=== PATIENT | female | born 1955 | race Caucasian/White ===

== ENCOUNTER 2019-06-17 07:12 | Day surgery (SDC) | payer MEDICARE ==
[~2019-06-17] VITALS: Ht 160 cm; Wt 75.5 kg
[~2019-06-17 07:12] MED LIST: ALBU90OI61 INH; Accuneb0.63 MG/3 INH; Aldactone100 MG PO; Ativan0.5 MG PO; B Complete1 EACH; B Complex #11 EACH PO; BASAGLAR KWIKPEN; CITA20 PO; CORGARD40 MG PO; FERR325 PO; FERSU300 PO; FLUC150A PO; FURO40 PO; Flonase 0.05% N16 GM; Flovent 110 MCG12 GM INH; GABA300 PO; GABA300T24 PO; Glucophage1000 MG PO; HYDACE5 PO; HYDMOR2 PO; HYOS.125 PO; HYOS.125 SL; IRBHYD150 PO; IRON150C; KRILL OIL500 MG; LOSA25; LOSHYD; METF500 PO; MULVITMIND; Maxalt10 MG; Maxalt5 MG; Mucinex600 MG PO; NADO40 PO; OMEP20ER PO; OMEPRAZOLE20 MG PO; ONDA8; POTASSIUM GLU2.5 MEQ; POTASSIUM GLUC500 MG PO; POTCIT5; Prednisone20 MG PO; QVAR7.3 G1; RIFA550T2 PO; RIZATRIPTAN5 MG PO; SITA25T2 PO; SPACE CHAMBER1 EACH PO; SPIR25; SULTRIDS PO; Tessalon200 MG PO; Valium5 MG PO; Ventolin/Prove6.7 GM INH; Vitamin D2000 UNIT PO; Zithromax250 MG PO; Zofran8 MG PO
--- NOTE | 2019-06-17 09:47 | NUR ---
06/17/19 0947 Leigha Polanco DELAYED ENTRY [id number] PT DROWSY IN SDU. PT C/O 7/10 PAIN IN STOMACH AND NECK (INTERNAL TO DEEP IN HER CHEST, PT STATES). IV FENTANYL GIVEN PER ORDERS. PT WAS ABLE TO SIT UP AND BELCH. PT STATES THIS HELPED RELIEVE THE PRESSURE. PT STATED PAIN DECREASED TO A 5/10 PRIOR TO DC. PT AND HEADED STRAIGHT TO COSTCOTO FILL PRESCRIPTION. DC INSTRUCTIONS PROVIDED WITH AT BEDSIDE.
[2019-07-03] MEDS ORDERED: ONDA4ODT MM (17:04)
[2019-07-03] MEDS ORDERED: MULTI COMPLETE1 EACH PO (17:04)
== END 2019-06-17 09:39 | disposition home or self-care (01) ==
LOC: ORSCSDS 07:12
PROVIDERS: Internal Medicine Gastroenterology
PROC: 06L38CZ Occlusion of Esophageal Vein with Extraluminal Device, Via Natural or Artificial Opening Endoscopic (ICD-10-PCS; principal; 2019-06-17 08:30)
DX: K74.60 Unspecified cirrhosis of liver (principal); I85.00 Esophageal varices without bleeding; K76.6 Portal hypertension; K31.89 Other diseases of stomach and duodenum; I10 Essential (primary) hypertension; E11.9 Type 2 diabetes mellitus without complications; J44.9 Chronic obstructive pulmonary disease, unspecified; J45.909 Unspecified asthma, uncomplicated; F17.210 Nicotine dependence, cigarettes, uncomplicated; Z79.899 Other long term (current) drug therapy
CPT/HCPCS: 82947; J0330; J0461; J2250; J2405; J2704; J3010; J7030; J7120

== ENCOUNTER 2019-07-08 10:36 | Day surgery (SDC) | payer MEDICARE ==
[~2019-07-08] VITALS: Ht 160 cm; Wt 75.6 kg
[~2019-07-08 10:36] MED LIST changes: +MULTI COMPLETE1 EACH PO; +ONDA4ODT MM
--- NOTE | 2019-07-08 11:22 | NUR ---
Ambulatory in Day Surgery History, Chart, Medications and Allergies reviewed before start of procedure.Lungs clear T/O to Auscultation. Patient confirms NPO status and agrees with scheduled surgery. Patient States Post-Procedure ride home has been arranged.
--- NOTE | 2019-07-08 11:48 | NUR ---
07/08/19 1148 Celestine Rivas 3-LEAD EKG REVIEWED WITH PHYSICIAN PRIOR TO START OF PROCEDURE.PATIENT CONFIRMS NPO STATUS AND AGREES WITH SCHEDULED PROCEDURE.History, Chart, Medications and Allergies reviewed before start of procedure. MONITOR INTACT WITH CONTINUOUS PULSE OXIMETRY AND INTERMITTENT BP. O2 VIA N/C INTACT THROUGHOUT SEDATION/PROCEDURE. Bite Block Placed
--- NOTE | 2019-07-08 13:04 | NUR ---
Discharge instructions reviewed with patient. Patient verbalizes understanding. Copy given to patient to take home. RX FOR PAIN GIVEN PT PT, PT STATES PAIN MUCH IMPROVED AFTER FENTANYL GIVEN PER ORDER AND AFTER PT BELCHED AFTER BEING SAT UP. Discharged via wheelchair to private car for ride home.
== END 2019-07-08 13:05 | disposition home or self-care (01) ==
LOC: ORSCMMR 10:36 → ORD 12:00 → ORSCMMR 12:00
PROVIDERS: Internal Medicine Gastroenterology
PROC: 06L38CZ Occlusion of Esophageal Vein with Extraluminal Device, Via Natural or Artificial Opening Endoscopic (ICD-10-PCS; principal; 2019-07-08 12:00)
DX: I85.00 Esophageal varices without bleeding (principal); K74.60 Unspecified cirrhosis of liver; K76.6 Portal hypertension; I10 Essential (primary) hypertension; J45.909 Unspecified asthma, uncomplicated; K31.89 Other diseases of stomach and duodenum; E11.9 Type 2 diabetes mellitus without complications; Z79.899 Other long term (current) drug therapy
CPT/HCPCS: 82947; J2704; J3010; J7120

== ENCOUNTER 2019-11-25 13:16 | Emergency (ER) | payer MEDICARE ==
[~2019-11-25] VITALS: Ht 160 cm; Wt 77.1 kg
[2019-11-25] MEDS ORDERED: CYCL10 PO (17:12)
[2019-11-25] MEDS ORDERED: Roxicodone5 MG PO (17:12)
[2019-11-25] MEDS ORDERED: LIDO700A20 TOP (17:12)
== END 2019-11-25 15:20 | disposition home or self-care (01) ==
LOC: ER 13:16
DX: S32.029A Unspecified fracture of second lumbar vertebra, initial encounter for closed fracture (principal); S32.059A Unspecified fracture of fifth lumbar vertebra, initial encounter for closed fracture; J45.909 Unspecified asthma, uncomplicated; I10 Essential (primary) hypertension; E11.9 Type 2 diabetes mellitus without complications; Z94.4 Liver transplant status; Z79.899 Other long term (current) drug therapy; Z79.51 Long term (current) use of inhaled steroids; Z79.84 Long term (current) use of oral hypoglycemic drugs; Z88.8 Allergy status to other drugs, medicaments and biological substances; X58.XXXA Exposure to other specified factors, initial encounter
CPT/HCPCS: 72100; 99283-25

== ENCOUNTER → 2020-01-20 | Outpatient (CLI) | payer MEDICARE ==
[~2020-01-20] MED LIST changes: +ASPI325 PO; +AZAT50 PO; +CYCL10 PO; +LIDO700A20 TOP; +Novolin R100 UNIT/M; +PRED5 PO; +Roxicodone5 MG PO; +TACR1 PO
== END | disposition home or self-care (01) ==
LOC: LAB 18:11 → LAB SHORT 18:11
DX: E79.0 Hyperuricemia without signs of inflammatory arthritis and tophaceous disease (principal)
CPT/HCPCS: 82570; 84156

== ENCOUNTER 2020-01-21 06:58 | Inpatient (IN) | payer MEDICARE ==
[~2020-01-21] VITALS: Ht 157.5 cm; Wt 78.1 kg
[~2020-01-21 06:58] MED LIST changes: -ASPI325 PO; -AZAT50 PO; -Novolin R100 UNIT/M; -PRED5 PO; -TACR1 PO
[2020-01-21] MEDS ORDERED: PRED5 PO (08:02)
[2020-01-21] MEDS ORDERED: AZAT50 PO (08:02)
[2020-01-21] MEDS ORDERED: TACR1 PO ×2 (08:02→12:43)
[2020-01-21] MEDS ORDERED: Novolin R100 UNIT/M (08:03)
[2020-01-21] MEDS ORDERED: ASPI325 PO (08:03)
[2020-01-21 08:19] LABS: BASOPHILS ABSOLUTE AUTO 0.05 K/mm3 (0.00-0.23); BASOPHILS PERCENT AUTO 1 % (0-2); EOSINOPHILS ABSOLUTE AUTO 0.06 K/mm3 (0.00-0.68); EOSINOPHILS PERCENT AUTO 1 % (0-6); Hematocrit 37.5 % (33.0-51.0); IMMATURE GRAN ABSOLUTE AUTO 0.06 K/mm3 (0.00-0.10); IMMATURE GRAN PERCENT AUTO 1 % (0-1); LYMPHOCYTES ABSOLUTE AUTO 1.18 K/mm3 (0.84-5.20); LYMPHOCYTES PERCENT AUTO 18 % (21-46); MONOCYTES ABSOLUTE AUTO 0.49 K/mm3 (0.16-1.47); MONOCYTES PERCENT AUTO 8 % (4-13); Mean Corpuscular Volume 106 fL (80-100); Mean Platelet Volume 10.8 fL (9.1-12.4); NEUTROPHILS PERCENT AUTO 72 % (41-73); Platelet Count 221 K/mm3 (150-400); RDW Coefficient Variation 14.2 % (11.7-14.2); RDW Standard Deviation 55.1 fL (35.1-46.3); Red Blood Cell Count 3.53 M/mm3 (3.80-5.20); White Blood Cell Count 6.54 K/mm3 (4.00-11.30)
[2020-01-21 08:37] LABS: International Normalized Ratio 0.98; Prothrombin Time Results 10.5 Sec (9.7-11.5)
[2020-01-21 08:44] LABS: Albumin, Blood 3.7 g/dL (3.4-5.0); Albumin/Globulin Ratio 1.2 (0.8-1.8); Bilirubin, Total 0.3 mg/dL (0.1-1.0); Bun/Creatinine Ratio 23.1 (12.0-20.0); Calcium, Blood 9.3 mg/dL (8.5-10.1); Creatinine, Blood 1.34 mg/dL (0.40-1.00); Globulin, Blood 3.2 g/dL (2.2-4.0); Potassium, Blood 4.7 mmol/L (3.5-5.5); Total Protein, Blood 6.9 g/dL (6.4-8.2); Troponin I 0.061 ng/mL (0.000-0.040)
[2020-01-21 12:04] LABS: Magnesium, Blood 1.7 mg/dL (1.6-2.4)
[2020-01-21 12:06] LABS: Thyroid Stimulating Hormone 2.87 uIU/mL (0.360-4.800)
[2020-01-21 12:31] LABS: Source, Urine Clean Catch
[2020-01-21 12:40] LABS: Bilirubin, Urine Neg (Neg); Blood, Urine Neg (Neg); Glucose Qualitative, Urine Neg (Neg); Ketones, Urine Neg (Neg); Leukocyte Esterase, Urine Neg (Neg); Nitrite, Urine Neg (Neg); Protein, Urine Neg (Neg); Specific Gravity, Urine 1.005 (1.003-1.022); Urobilinogen, Urine NORM (Normal)
[2020-01-21 13:05] LABS: Appearance, Urine Clear (Clear); Color, Urine Yellow (P-Yellow)
--- NOTE | 2020-01-21 20:00 | NUR ---
PT RECEIVED FROM [facility] AT 1300. PT IS HERE FOR CHF EXA, PT CAME IN TO ER D/T SOB/DYSPNEA. BNP ELEVATED AT 1004 TROP 0.107 CARDIOLOGISTS IS CONSULTED. PT ON IV LASIX FOR DIURETICS. PT HAS PUREWICK TUBE IN PLACE FOR URINARY COMFORT, OUTPUT MORE THAN 2000MLS FOR THE SHIFT. HRR SINUS TACH ON 100'S. PT ON NEUTROPENIC PREC POST LIVER TRANS PLANT 6 MOS AGO. PT ON ANTI REJECTION MEDICATION. PT CURRENTLY IN BED ABLE TO MAKE NEEDS KNOWN. REPORT GIVEN TO ONCOMING SHIFT.
[2020-01-22 04:29] LABS: BASOPHILS ABSOLUTE AUTO 0.06 K/mm3 (0.00-0.23); BASOPHILS PERCENT AUTO 1 % (0-2); EOSINOPHILS ABSOLUTE AUTO 0.05 K/mm3 (0.00-0.68); EOSINOPHILS PERCENT AUTO 1 % (0-6); Hematocrit 35.4 % (33.0-51.0); Hemoglobin 11.3 g/dL (11.5-16.0); IMMATURE GRAN ABSOLUTE AUTO 0.02 K/mm3 (0.00-0.10); IMMATURE GRAN PERCENT AUTO 0 % (0-1); LYMPHOCYTES ABSOLUTE AUTO 0.99 K/mm3 (0.84-5.20); LYMPHOCYTES PERCENT AUTO 22 % (21-46); MONOCYTES ABSOLUTE AUTO 0.59 K/mm3 (0.16-1.47); MONOCYTES PERCENT AUTO 13 % (4-13); Mean Corpuscular HGB Conc 31.9 g/dL (31.5-36.5); Mean Corpuscular Volume 107 fL (80-100); Mean Platelet Volume 11.2 fL (9.1-12.4); NEUTROPHILS PERCENT AUTO 62 % (41-73); Platelet Count 182 K/mm3 (150-400); RDW Coefficient Variation 14.3 % (11.7-14.2); RDW Standard Deviation 56.3 fL (35.1-46.3); Red Blood Cell Count 3.32 M/mm3 (3.80-5.20); White Blood Cell Count 4.51 K/mm3 (4.00-11.30)
[2020-01-22 04:51] LABS: Albumin, Blood 3.4 g/dL (3.4-5.0); Albumin/Globulin Ratio 1.1 (0.8-1.8); Bilirubin, Total 0.3 mg/dL (0.1-1.0); Bun/Creatinine Ratio 21.5 (12.0-20.0); Calcium, Blood 8.8 mg/dL (8.5-10.1); Creatinine, Blood 1.44 mg/dL (0.40-1.00); Globulin, Blood 3.1 g/dL (2.2-4.0); Potassium, Blood 4.3 mmol/L (3.5-5.5); Total Protein, Blood 6.5 g/dL (6.4-8.2)
--- NOTE | 2020-01-22 05:40 | NUR ---
SHIFT SUMMARY PT SLEEPING COMFORTABLY IN ROOM AT THIS TIME. PT SLEPT WELL T/O NIGHT. NO ACUTE CHANGES IN STATUS. PT PUREWICK EXTERNAL CATHETER WAS REMOVED AT 0000 PER REPORT FROM DAY SHIFT RN. PT HAS SINCE BEEN ABLE TO AMBULATE INTO BATHROOM TO VOID. PT DENIED ANY CP OR SOB T/O NIGHT. 1L NC PLACED ON PT DURING SLEEP D/T PT SLIGHLY DESATTING WHILE SLEEPING. NEUTROPENIC PRECAUTIONS IN PLACE D/T PT RECENT LIVER TRANSPLANT. PT DENIES OTHER NEDS. CALL LIGHT IN REACH. WILL GIVE BEDSIDE REPORT TO ONCOMING RN.
--- NOTE | 2020-01-22 18:55 | NUR ---
SHIFT NOTE PT HAS BEEN TREATED T/O DAY FOR MIGRAINE AND C/O OF BACK AIN R/T COMPRESSION FX OF BACK X3 MONTHS AGO. VSS. PT A/O X3, ANSWERING QUSETIONS APPROPRIATELY IN FULL SENTENCES. PT 1 PERSON SBA T/O SHIFT, U TO BATHROOM WITHOUT DIFF. DOES REQUIRE ASSITANCE WIPING AFTER TOILETING IT CAUSES HER BACK PAIN TO WORSEN
--- NOTE | 2020-01-22 22:45 | NUR ---
CALLED HOSPITALIST INFORMED HER THAT PT VOMITING & NAUSEOUS. SHE ORDERED 4MG IV ZOFRAN TO BE GIVEN NOW.
--- NOTE | 2020-01-23 01:14 | NUR ---
HR ELEVATED TEMPORARILY PT HAD JUST AMBULATED TO THE BATHROOM. SHE HAS CHRONIC BACK PAIN WELL. HR DID COME BACK DOWN WHEN SHE RETURNED TO HER BED.
[2020-01-23 03:45] LABS: BASOPHILS ABSOLUTE AUTO 0.04 K/mm3 (0.00-0.23); BASOPHILS PERCENT AUTO 1 % (0-2); EOSINOPHILS ABSOLUTE AUTO 0.06 K/mm3 (0.00-0.68); EOSINOPHILS PERCENT AUTO 1 % (0-6); Hematocrit 35.8 % (33.0-51.0); Hemoglobin 11.6 g/dL (11.5-16.0); IMMATURE GRAN ABSOLUTE AUTO 0.02 K/mm3 (0.00-0.10); IMMATURE GRAN PERCENT AUTO 0 % (0-1); LYMPHOCYTES ABSOLUTE AUTO 1.13 K/mm3 (0.84-5.20); LYMPHOCYTES PERCENT AUTO 19 % (21-46); MONOCYTES ABSOLUTE AUTO 0.82 K/mm3 (0.16-1.47); MONOCYTES PERCENT AUTO 14 % (4-13); Mean Corpuscular HGB 33.8 pg (26.0-34.0); Mean Corpuscular HGB Conc 32.4 g/dL (31.5-36.5); NEUTROPHILS ABSOLUTE AUTO 3.75 K/mm3 (1.96-9.15); NEUTROPHILS PERCENT AUTO 65 % (41-73); Platelet Count 184 K/mm3 (150-400); RDW Standard Deviation 53.9 fL (35.1-46.3); Red Blood Cell Count 3.43 M/mm3 (3.80-5.20); White Blood Cell Count 5.82 K/mm3 (4.00-11.30)
[2020-01-23 03:47] LABS: Mean Corpuscular Volume 104 fL (80-100)
[2020-01-23 04:05] LABS: Albumin, Blood 3.5 g/dL (3.4-5.0); Anion Gap 4 mmol/L (6-16); Blood Urea Nitrogen 29 mg/dL (8-24); Bun/Creatinine Ratio 18.4 (12.0-20.0); CO2, Blood 33 mmol/L (21-32); Chloride, Blood 103 mmol/L (98-108); Creatinine, Blood 1.58 mg/dL (0.40-1.00); Glomerular Filtration Rate 35 (60-); Glucose, Blood 119 mg/dL (70-99); Phosphorus, Blood 4.4 mg/dL (2.5-4.9); Sodium, Blood 140 mmol/L (136-145)
--- NOTE | 2020-01-23 04:56 | NUR ---
SHIFT SUMMARY ADMITTED FOR NEW ONSET CHF. FULL CODE. TACHY 94-112 BPM, 120'S BPM WITH AMBULATION. NEW IV PLACED THIS SHIFT. 2000 ML FLUID RESTRICTION. I DID A STANDING WEIGHT DUE TO STRICT I&O'S AND DIAGNOSIS. AC CHEMSTICKS. LIVER TRANSPLANT PERFORMED IN 2019. IMMUNOSUPRESSIVE DRUGS IN EMAR. NEUTROPENIC PRECAUTIONS. PLAN IS TO DIURESE THIS PT, PERFORM AN ANGIOGRAM BEFORE DISCHARGE. MONITORING BNP LABS. BACK PAIN FROM MULTIPLE COMPRESSION FRACTURES. EF IS 25-30%. THIS SHIFT SHE VOMITED TWICE, I MEDICATED HER PER EMAR THE FIRST TIME, CALLED THE HOSPITALIST THE SECOND TIME. HX: LIVER CANCER, DM2, ASTHMA, CKD3, HTN, HEPATITIS, CKD3.
--- NOTE | 2020-01-23 16:42 | NUR ---
REQUESTED MEDICAL RECORDS PER DR CLIFFORD'S REQUEST VIA FAX.
--- NOTE | 2020-01-23 16:44 | NUR ---
PT HAS BEEN AOX4 AND COOPERATIVE OF CARE. PT WAS HAVING NAUSEA AT START OF SHIFT. PT STATED SHE WAS HAVING A MIGRAINE AND DR MORGAN WAS NOTIFIED AND ADDED MEDICAITON TO EM[facility], PT WAS TREATED X1. MEDCIATION WAS EFFECTIVE SHE WAS ALSO GIVEN ZOFRAN AND THIS ONLY HELPED MILDLY. EXTRA NAUSEA MEDICATION WAS ADDED, BUT PT HAD STARTED TO FEEL BETTER AND DID NOT NEED IT. PT HAS BEEN FEELING MUCH BETTER SINCE HEADACHE WAS RELIEVED. PT IS A STANDBY TO RESTROOM. PT RESTING COMFORTABLY IN BED AT THIS TIME NO DISTRESS NOTED. WILL CONTINUE TO MONITOR.
[2020-01-24 04:00] LABS: Hematocrit 35.6 % (33.0-51.0); Hemoglobin 11.9 g/dL (11.5-16.0); Mean Corpuscular HGB 34.2 pg (26.0-34.0); Mean Corpuscular HGB Conc 33.4 g/dL (31.5-36.5); Mean Corpuscular Volume 102 fL (80-100); Mean Platelet Volume 10.9 fL (9.1-12.4); Platelet Count 171 K/mm3 (150-400); RDW Coefficient Variation 14.1 % (11.7-14.2); RDW Standard Deviation 52.9 fL (35.1-46.3); Red Blood Cell Count 3.48 M/mm3 (3.80-5.20); White Blood Cell Count 5.41 K/mm3 (4.00-11.30)
[2020-01-24 04:23] LABS: Albumin, Blood 3.4 g/dL (3.4-5.0); Albumin/Globulin Ratio 1.1 (0.8-1.8); Bilirubin, Total 0.4 mg/dL (0.1-1.0); Bun/Creatinine Ratio 18.3 (12.0-20.0); Creatinine, Blood 1.86 mg/dL (0.40-1.00); Globulin, Blood 3.2 g/dL (2.2-4.0); Magnesium, Blood 1.8 mg/dL (1.6-2.4); Phosphorus, Blood 4.4 mg/dL (2.5-4.9); Potassium, Blood 3.7 mmol/L (3.5-5.5); Total Protein, Blood 6.6 g/dL (6.4-8.2)
--- NOTE | 2020-01-24 05:20 | NUR ---
SHIFT SUMMARY PT A&O X4. VSS. NO EVENTS OVERNIGHT. MONITOR SHOWS NSR, HR 90's. LUNG SOUNDS CLEAR, DIM IN BASES. SPO2 > 92% ON RA OR 2L NC D/T PT REQUEST FOR NC WHILE SLEEPING. PT DENIES USING O2 AT HOME, BUT REPORTS HAVING DESATED WHILE SLEEPING PREVIOUS NIGHT. PT DENIES EVER HAVING HAD SLEEP STUDY PERFORMED. PT REPORTS WAKING MULTIPLE TIMES THIS SHIFT FOR UNKNOWN REASONS IN ADDITION TO BEING WOKEN BY STAFF FOR VS/MEDS/ASSESSMENTS. PT NPO SINCE MIDNIGHT FOR POSSIBLE ANGIO. WILL CONTINUE TO MONITOR AND PROVIDE CARE UNTIL REPORT OFF TO DAY SHIFT RN.
--- NOTE | 2020-01-24 19:10 | NUR ---
SHIFT SUMMARY PT REMAINED AAOX4 THROUGHOUT SHIFT. VSS. NO C/O CHEST PAIN/PRESSURE OR SOB. PLAN WAS FOR ANGIOGRAM TODAY, BUT WAS HELD DUE TO ELEVATED CREATININE; PLAN IS FOR POSSIBLE ANGIO TOMORROW IF RENAL FUNCTION IMPROVES. PT REMAINS ON 2L FLUID RESTRICTION. CURRENTLY RESTING IN BED IN STABLE CONDITION. AT BEDSIDE. REPORT GIVEN TO ONCOMING RN.
--- NOTE | 2020-01-24 20:55 | NUR ---
1944: REPORT RECEIVED FROM DAY RN, PT ALERT, ORIENTED X3. STATES SHE HAS CHRONIC PAIN IN BACK. REQUEST PAIN MED WITH NIGHT MEDS. HRR, LUNG SOUNDS CLEAR TO AUSCULTATION, STABLE OXYGEN SATURATION ON ROOM AIR, NO C/O SHORTNESS OF BREATH. ABDOMEN ROUND, SOFT, NON TENDER, WITH HYPOACTIVE BOWEL TONES NOTED. DENIES DYSURIA, NO EDEMA NOTED, SKIN INTACT.
[2020-01-25 04:27] LABS: BASOPHILS ABSOLUTE AUTO 0.06 K/mm3 (0.00-0.23); BASOPHILS PERCENT AUTO 1 % (0-2); EOSINOPHILS ABSOLUTE AUTO 0.06 K/mm3 (0.00-0.68); EOSINOPHILS PERCENT AUTO 1 % (0-6); Hematocrit 36.7 % (33.0-51.0); IMMATURE GRAN ABSOLUTE AUTO 0.04 K/mm3 (0.00-0.10); IMMATURE GRAN PERCENT AUTO 1 % (0-1); LYMPHOCYTES ABSOLUTE AUTO 0.94 K/mm3 (0.84-5.20); LYMPHOCYTES PERCENT AUTO 19 % (21-46); MONOCYTES ABSOLUTE AUTO 0.64 K/mm3 (0.16-1.47); MONOCYTES PERCENT AUTO 13 % (4-13); Mean Corpuscular HGB 33.6 pg (26.0-34.0); Mean Corpuscular HGB Conc 32.7 g/dL (31.5-36.5); Mean Corpuscular Volume 103 fL (80-100); Mean Platelet Volume 11.2 fL (9.1-12.4); NEUTROPHILS PERCENT AUTO 65 % (41-73); Platelet Count 194 K/mm3 (150-400); RDW Coefficient Variation 14.2 % (11.7-14.2); RDW Standard Deviation 53.3 fL (35.1-46.3); Red Blood Cell Count 3.57 M/mm3 (3.80-5.20); White Blood Cell Count 5.04 K/mm3 (4.00-11.30)
[2020-01-25 04:54] LABS: Albumin, Blood 3.4 g/dL (3.4-5.0); Anion Gap 5 mmol/L (6-16); Blood Urea Nitrogen 36 mg/dL (8-24); Bun/Creatinine Ratio 20.5 (12.0-20.0); CO2, Blood 32 mmol/L (21-32); Calcium, Blood 9.2 mg/dL (8.5-10.1); Chloride, Blood 103 mmol/L (98-108); Creatinine, Blood 1.76 mg/dL (0.40-1.00); Glomerular Filtration Rate 31 (60-); Glucose, Blood 111 mg/dL (70-99); Phosphorus, Blood 3.5 mg/dL (2.5-4.9); Potassium, Blood 3.9 mmol/L (3.5-5.5); Sodium, Blood 140 mmol/L (136-145)
--- NOTE | 2020-01-25 05:57 | NUR ---
SHIFT SUMMARY. PT MEDICATED X1 FOR CHRONIC BACK PAIN. PT IS A/O X3. UP TO BR WITH 1 ASSIST. MOVES WITH SLOW STEADY GAIT. HRR, NO C/O CHEST PAIN. LUNG SOUNDS DIMINISHED IN BASES, PT DENIES SHORTNESS OF BREATH. NO N/V/D. VOIDING WITHOUT COMPLICATIONS, CLEAR YELLOW URINE NOTED, QS. IV W/O RST, FLUSHES WELL. PT ADHERING TO FLUID RESTRICTION.
--- NOTE | 2020-01-25 19:17 | NUR ---
SHIFT SUMMARY NO ACUTE CHANGES THROUGHOUT SHIFT. PT REMAINED AAOX4, VSS. PT DENIED ANY C/O CHEST PAIN/PRESSURE OR SOB. PT'S RENAL FUNCTION IMPROVED TODAY AT 1.76, BUT NEPHROLOGY STILL RECCOMMENDED AVOIDING ANGIOGRAM; INSTEAD PT WENT FOR NUCLEAR STRESS TEST TODAY; PLAN TO COMPLETE SECOND PART OF TEST TOMORROW AT 8AM. PT MEDICATED FOR CHRONIC BACK PAIN PER EMAR. CURRENTLY RESTING IN BED IN NO DISTRESS. REPORT GIVEN TO ONCOMING RN.
--- NOTE | 2020-01-25 20:08 | NUR ---
RECEIVED REPORT FROM [facility] RN, PT ALERT, ORIENTED X3. MEDICATED WITH ROXICODONE 2.5MG PO FOR BACK AND HIP PAIN. HRR, NO C/O CHEST PAIN. LUNG SOUNDS CLEAR TO AUSCULTATION, STABLE OXYGEN SATURATION ON ROOM AIR. DENIES SHORTNESS OF BREATH. NO EDEMA NOTED. ABDOMEN ROUND, SOFT, NON TENDER, PT STATES NAUSEA RELIEVED WITH ZOFRAN. DENIES DYSURIA, IV W/O RST. BED IN LOW POSITION, CALL ROSS WITHIN REACH.
[2020-01-26 04:38] LABS: Hematocrit 38.4 % (33.0-51.0); Hemoglobin 12.5 g/dL (11.5-16.0); Mean Corpuscular HGB 33.7 pg (26.0-34.0); Mean Corpuscular HGB Conc 32.6 g/dL (31.5-36.5); Mean Corpuscular Volume 104 fL (80-100); Mean Platelet Volume 11.5 fL (9.1-12.4); Platelet Count 186 K/mm3 (150-400); RDW Coefficient Variation 14.1 % (11.7-14.2); RDW Standard Deviation 53.6 fL (35.1-46.3); Red Blood Cell Count 3.71 M/mm3 (3.80-5.20); White Blood Cell Count 4.31 K/mm3 (4.00-11.30)
[2020-01-26 04:57] LABS: Albumin, Blood 3.5 g/dL (3.4-5.0); Anion Gap 8 mmol/L (6-16); Blood Urea Nitrogen 37 mg/dL (8-24); Bun/Creatinine Ratio 20.3 (12.0-20.0); CO2, Blood 30 mmol/L (21-32); Calcium, Blood 9.6 mg/dL (8.5-10.1); Chloride, Blood 103 mmol/L (98-108); Creatinine, Blood 1.82 mg/dL (0.40-1.00); Glomerular Filtration Rate 30 (60-); Glucose, Blood 102 mg/dL (70-99); Magnesium, Blood 1.9 mg/dL (1.6-2.4); Potassium, Blood 4.1 mmol/L (3.5-5.5); Sodium, Blood 141 mmol/L (136-145)
--- NOTE | 2020-01-26 05:39 | NUR ---
PT SLEPT MOST OF SHIFT. VSS, NO C/O SHORTNESS OF BREATH OR CHEST PAIN. PT MEDICATED X1 FOR CHRONIC BACK AND LEFT HIP PAIN. PT IS UP WITH ONE PERSON ASSIST. HRR, NO EDEMA NOTED. LUNG SOUNDS CLEAR TO AUSCULTATION. STABLE OXYGEN SATURATION ON ROOM AIR. ABDOMEN ROUND, SOFT, NON-TENDER. PT URINATING WITHOUT DIFFICULTY. PT IS NPO FOR CARDIAC SCAN TEST THIS MORNING.
--- NOTE | 2020-01-26 19:20 | NUR ---
SHIFT SUMMARY NO ACUTE CHANGES THROUGHOUT SHIFT. VSS, PT REMAINS AWAKE & ALERT. DENIED ANY C/O CHEST PAIN/PRESSURE OR SOB. STRESS TEST WAS COMPLETED TODAY. PT WAS MEDICATED FOR BACK PAIN PER EMAR; ALSO PROVIDED PT W/ K-PAD WARMER; REPORTS POSITIVE PAIN RELIEF. PT DID C/O SEVERE MIGRAINE, MEDICATED W/ MAXALT X1 DOSE W/ NO RELIEF; RECEIVED NEW TELEPHONE ORDER FROM DR. MORGAN FOR EXTRA DOSE OF MAXALT. PT REPORTS THAT MIGRAINE IS STARTING TO SUBSIDE AT THIS TIME; CURRENTLY RESTING IN BED W/ EYES CLOSED & LIGHTS OUT. REPORT GIVEN TO ONCOMING RN. WILL CONTINUE TO MONITOR.
--- NOTE | 2020-01-26 22:06 | NUR ---
19:30 LATE ENTRY RECEIVED REPORT FROM ARNULFO JOSUE. PT IS ALERT, ORIENTED X3. STATES MIGRAINE HEADACH IS GETTING A LITTLE BETTER. DENIES NAUSEA. HRR, TRACE EDEMA NOTED IN RLE. NO C/O CHEST PAIN. LUNG SOUNDS WITH FAINT CRACKLE IN RLL, STABLE OXYGEN SATURATION ON RA, PT DENIES SHORTNESS OF BREATH. ABDOMEN ROUND, SOFT, NON TENDER WITH HYPOACTIVE BOWEL TONES NOTED. PT DID NOT EAT HER DINNER DUE TO MIGRAINE. NO COMPLICATION WITH URINATION. PT IS UP WITN ONE PERSON ASSIST TO BATHROOM, SLOW STEADY GAIT NOTED. BED IN LOW POSITION, CALL ROSS WITHIN REACH.
--- NOTE | 2020-01-27 05:07 | NUR ---
PT HAD MIGRAINE AT BEGINNING OF THE SHIFT. IT HAS RESOLVED. PT IS ALERT, ORIENTED X3. HAS CHRONIC BACK PAIN, BUT REFUSED PAIN MEDICATION. HRR, NO C/O CHEST PAIN. LUNG SOUNDS WITH FINE CRACKLE IN LLL, CLEARED WITH COUGH. STABLE OXYGEN SATURATION ON ROOM AIR. PT DENIES SHORTNESS OF BREATH. ABDOMEN ROUND, SOFT, NON TENDER. PT UP TO BATHROOM, VOIDING WITHOUT DIFFICULTY, URINE CLEAR JACQUELINE. PT DENIES DYSURIA. IV W/O RST. NO FALL OR INJURY THIS SHIFT. BED IN LOW POSITION, CALL ROSS WITHIN REACH.
[2020-01-27 05:11] LABS: BASOPHILS ABSOLUTE AUTO 0.05 K/mm3 (0.00-0.23); BASOPHILS PERCENT AUTO 1 % (0-2); EOSINOPHILS ABSOLUTE AUTO 0.07 K/mm3 (0.00-0.68); EOSINOPHILS PERCENT AUTO 1 % (0-6); Hematocrit 38.2 % (33.0-51.0); Hemoglobin 12.6 g/dL (11.5-16.0); IMMATURE GRAN ABSOLUTE AUTO 0.03 K/mm3 (0.00-0.10); IMMATURE GRAN PERCENT AUTO 1 % (0-1); LYMPHOCYTES ABSOLUTE AUTO 1.05 K/mm3 (0.84-5.20); LYMPHOCYTES PERCENT AUTO 20 % (21-46); MONOCYTES ABSOLUTE AUTO 0.69 K/mm3 (0.16-1.47); MONOCYTES PERCENT AUTO 13 % (4-13); Mean Corpuscular HGB 33.9 pg (26.0-34.0); Mean Corpuscular Volume 103 fL (80-100); Mean Platelet Volume 11.6 fL (9.1-12.4); NEUTROPHILS PERCENT AUTO 64 % (41-73); Platelet Count 195 K/mm3 (150-400); RDW Coefficient Variation 13.9 % (11.7-14.2); RDW Standard Deviation 52.6 fL (35.1-46.3); Red Blood Cell Count 3.72 M/mm3 (3.80-5.20); White Blood Cell Count 5.19 K/mm3 (4.00-11.30)
[2020-01-27 05:34] LABS: Albumin, Blood 3.6 g/dL (3.4-5.0); Anion Gap 8 mmol/L (6-16); Blood Urea Nitrogen 29 mg/dL (8-24); Bun/Creatinine Ratio 17.4 (12.0-20.0); CO2, Blood 28 mmol/L (21-32); Calcium, Blood 9.7 mg/dL (8.5-10.1); Chloride, Blood 103 mmol/L (98-108); Creatinine, Blood 1.67 mg/dL (0.40-1.00); Glomerular Filtration Rate 33 (60-); Glucose, Blood 149 mg/dL (70-99); Phosphorus, Blood 3.6 mg/dL (2.5-4.9); Potassium, Blood 4.4 mmol/L (3.5-5.5); Sodium, Blood 139 mmol/L (136-145)
--- NOTE | 2020-01-27 07:41 | NUR ---
pt laying in bed awake watching tv, a/ox3, pleasant and cooperative with care, follows commands well, reports h/a, otherwise no complaints, doesn't want any medication for that at this time, reports no bm since monday, is willing to try prune juice, lungs are clear t/o, resp even and unlabored, no cough noted, hrr, tele in place running sr per monitor, see strip, no edema noted, ppp+2, cap refill <3sec, vs stable, afebrile, piv site to lfa is clear and patent, btx4, abd flat soft nontender, voids without diff, skin c/w/d, maew, sandoval, call light in reach.
[2020-01-27 10:31] LABS: Albumin, Blood 3.4 g/dL (3.4-5.0); Bilirubin, Total 0.7 mg/dL (0.1-1.0); Calcium, Blood 9.2 mg/dL (8.5-10.1); Creatinine, Blood 1.76 mg/dL (0.40-1.00); Globulin, Blood 3.4 g/dL (2.2-4.0); Potassium, Blood 4.6 mmol/L (3.5-5.5); Total Protein, Blood 6.8 g/dL (6.4-8.2); Uric Acid, Blood 8.6 mg/dL (2.6-6.0)
--- NOTE | 2020-01-27 18:28 | NUR ---
PT QUITE PLEASANT THIS AFT. HUSB S/O IN ROOM. QUITE PLEASANT ALSO. DENIES PAIN. STATES DR CLIFFORD WAS IN AND PLAN IS FOR OUTSIDE PACER FOR 2-3 WEEKS. NEDICAL MANAGEMENT FOR NOW. SAID HEART HAD LOWER EF THAN EXPECTED. NO OTHER CONCERNS AT THIS TIME. BED IN LOW POSITION, CALL LITE IN REACH, 1 SBA. CALLS APPROP
--- NOTE | 2020-01-28 05:46 | NUR ---
Shift Summary Pt sleeping at this time. Pt had difficulty falling asleep this shift d/t chronic back pain. This pain was relieved with 2.5 mg oxycodone per emar and at pt request. Overall, VSS, pt remains alert and oriented throughout shift. No events on tele. No complaints of shortness of breath or difficulty breathing. Pt with weak gait and uses the wall during ambulation. Walker encouraged and pt compliant. Pt uses call light to make needs known. She can ambulate with one assist to the bathroom for voiding. Pt takes all medications whole with water. Fluid restriction compliant this shift with 400 ml intake all night. Pt is calm and cooperative with care, receptive to education and asks questions. She is involved in her care and self education. No changes from initial shift assessment apart from pain exacerbation previously noted. Will continue to monitor. Call light in reach, intentional hourly rounding completed and to be continued throughout the rest of this shift.
[2020-01-28 05:55] LABS: Albumin, Blood 3.6 g/dL (3.4-5.0); Anion Gap 7 mmol/L (6-16); Blood Urea Nitrogen 35 mg/dL (8-24); CO2, Blood 28 mmol/L (21-32); Calcium, Blood 9.5 mg/dL (8.5-10.1); Chloride, Blood 102 mmol/L (98-108); Creatinine, Blood 1.75 mg/dL (0.40-1.00); Glomerular Filtration Rate 31 (60-); Glucose, Blood 147 mg/dL (70-99); Magnesium, Blood 1.9 mg/dL (1.6-2.4); Phosphorus, Blood 4.4 mg/dL (2.5-4.9); Potassium, Blood 4.2 mmol/L (3.5-5.5); Sodium, Blood 137 mmol/L (136-145)
--- NOTE | 2020-01-28 07:04 | NUR ---
ASSUMED CARE REPORT FROM ARNULFO MOE. PATIENT SLEEPING.
--- NOTE | 2020-01-28 08:34 | NUR ---
PATIENT IS CONSTIPATED WOULD LIKE SOME MILK OF MAG AND STOOL SOFTENER
[2020-01-28] MEDS ORDERED: ACET325 PO (10:13)
[2020-01-28] MEDS ORDERED: Calcitonin-Sal3.7 ML (10:17)
[2020-01-28] MEDS ORDERED: DOCU100 PO (10:18)
[2020-01-28] MEDS ORDERED: FURO20 PO (10:18)
[2020-01-28] MEDS ORDERED: HYDR10 PO (10:19)
[2020-01-28] MEDS ORDERED: BASAGLAR K100 UNIT/1 SC (10:21)
[2020-01-28] MEDS ORDERED: Humalog100 UNIT/1 SC (10:22)
[2020-01-28] MEDS ORDERED: Isosorbide Mono30 MG PO (10:23)
[2020-01-28] MEDS ORDERED: METO25ER PO (10:24)
[2020-01-28] MEDS ORDERED: OMEP20ER PO (10:24)
[2020-01-28] MEDS ORDERED: ONDA4ODT MM (10:25)
[2020-01-28] MEDS ORDERED: ROXICODONE5 MG PO (10:26)
[2020-01-28] MEDS ORDERED: POTA10T PO (10:26)
[2020-01-28] MEDS ORDERED: PROM25 PO (10:27)
[2020-01-28] MEDS ORDERED: Pravachol40 MG PO (10:27)
[2020-01-28] MEDS ORDERED: RIZATRIPTAN10 MG PO (10:28)
== END 2020-01-28 12:33 | disposition home or self-care (01) | DRG 280 ==
LOC: ER 06:58 → PCU 13:51
PROVIDERS: Emergency Medicine; Family Medicine; Internal Medicine; Nurse Practitioner; Nurse Practitioner Acute Care; ADMIT Internal Medicine
DX: I21.9 Acute myocardial infarction, unspecified (principal); I50.41 Acute combined systolic (congestive) and diastolic (congestive) heart failure; Z94.4 Liver transplant status; I31.3 Pericardial effusion (noninflammatory); I13.0 Hypertensive heart and chronic kidney disease with heart failure and stage 1 through stage 4 chronic kidney disease, or unspecified chronic kidney disease; S22.080A Wedge compression fracture of T11-T12 vertebra, initial encounter for closed fracture; N18.3 Chronic kidney disease, stage 3 (moderate); E11.22 Type 2 diabetes mellitus with diabetic chronic kidney disease; D63.1 Anemia in chronic kidney disease; J45.909 Unspecified asthma, uncomplicated; M19.90 Unspecified osteoarthritis, unspecified site; I25.10 Atherosclerotic heart disease of native coronary artery without angina pectoris; E78.5 Hyperlipidemia, unspecified; R79.89 Other specified abnormal findings of blood chemistry; K73.9 Chronic hepatitis, unspecified; Z85.05 Personal history of malignant neoplasm of liver; Z79.4 Long term (current) use of insulin; Z79.82 Long term (current) use of aspirin; Z79.52 Long term (current) use of systemic steroids
CPT/HCPCS: 36415; 71045; 71260; 78452; 80053; 80069; 80197; 81003; 82947; 83605; 83735; 83880; 84100; 84145; 84443; 84484; 84550; 85025; 85027; 85610; 85730; 87040; 93005; 93010; 93017; 94762; 96361; 96365-59; 96372-59; 96375-59; 96376; 99285-25; A9270; A9270-GY; A9500; C8929; J0706; J1644; J1940; J2405; J2550; J2785; J3475; J7030; J7500; J7507; J7512; Q9957; Q9967

== ENCOUNTER 2020-12-02 10:04 | Day surgery (SDC) | payer MEDICARE ==
[~2020-12-02] VITALS: Ht 160 cm; Wt 87.7 kg
[~2020-12-02 10:04] MED LIST changes: +ACET325 PO; +ASPI325EC PO; +AZAT50 PO; +BASAGLAR K100 UNIT/1 SC; +Calcitonin-Sal3.7 ML; +DOCU100 PO; +FURO20 PO; +HYDR10 PO; +Humalog100 UNIT/1 SC; +Isosorbide Mono30 MG PO; +METO25ER PO; +Novolin R100 UNIT/M; +POTA10T PO; +PRED5 PO; +PROM25 PO; +Pravachol40 MG PO; +ROXICODONE5 MG PO; +TACR1 PO
[2020-12-02] MEDS ORDERED: BASAGLAR K100 UNIT/7 (10:23)
[2020-12-02] MEDS ORDERED: MYFORTIC360 M1 (10:26)
--- NOTE | 2020-12-02 10:41 | NUR ---
12/02/20 1041 Sarah Stoddard 1034 TIMEOUT AND SITE CHECK DONE WITH DR JUNE PAN.
--- NOTE | 2020-12-02 11:00 | NUR ---
12/02/20 Neeru Canela DUE TO GENERATOR ISSUES AT [facility] CASE DONE AT [facility] OR 1.
== END 2020-12-02 11:38 | disposition home or self-care (01) ==
LOC: ORSCSDS 10:04
PROVIDERS: Orthopaedic Surgery
PROC: 01N54ZZ Release Median Nerve, Percutaneous Endoscopic Approach (ICD-10-PCS; principal; 2020-12-02 10:30)
DX: G56.03 Carpal tunnel syndrome, bilateral upper limbs (principal); I10 Essential (primary) hypertension; E78.5 Hyperlipidemia, unspecified; E11.9 Type 2 diabetes mellitus without complications; M19.90 Unspecified osteoarthritis, unspecified site; J44.9 Chronic obstructive pulmonary disease, unspecified; Z79.82 Long term (current) use of aspirin; Z79.899 Other long term (current) drug therapy; Z87.891 Personal history of nicotine dependence; Z79.4 Long term (current) use of insulin; E66.9 Obesity, unspecified; Z68.34 Body mass index [BMI] 34.0-34.9, adult
CPT/HCPCS: 82947; J2250; J2704; J3010; J7120

== ENCOUNTER 2021-03-12 13:33 | Inpatient (IN) | payer MEDICARE ==
[~2021-03-12] VITALS: Ht 160 cm; Wt 86.2 kg
[~2021-03-12 13:33] MED LIST changes: +BASAGLAR K100 UNIT/7; +MYFORTIC360 M1
[2021-03-12] MEDS ORDERED: METO50ER PO (14:23)
[2021-03-12] MEDS ORDERED: Pravastatin Sod80 MG PO (14:24)
[2021-03-12] MEDS ORDERED: TACR1 PO (14:25)
[2021-03-12] MEDS ORDERED: Cellcept500 MG PO (14:26)
[2021-03-12] MEDS ORDERED: ALLO100 PO (14:27)
[2021-03-12] MEDS ORDERED: Isosorbide Mono30 MG PO (14:27)
[2021-03-12] MEDS ORDERED: BASAGLAR K100 UNIT/8 SC (15:04)
[2021-03-12] MEDS ORDERED: FORTEO2.4 ML SC (15:06)
[2021-03-12 15:14] LABS: BASOPHILS ABSOLUTE AUTO 0.01 K/mm3 (0.00-0.23); BASOPHILS PERCENT AUTO 0 % (0-2); EOSINOPHILS PERCENT AUTO 0 % (0-6); Hematocrit 36.3 % (33.0-51.0); Hemoglobin 11.5 g/dL (11.5-16.0); IMMATURE GRAN ABSOLUTE AUTO 0.03 K/mm3 (0.00-0.10); IMMATURE GRAN PERCENT AUTO 1 % (0-1); LYMPHOCYTES ABSOLUTE AUTO 0.36 K/mm3 (0.84-5.20); LYMPHOCYTES PERCENT AUTO 9 % (21-46); MONOCYTES ABSOLUTE AUTO 0.38 K/mm3 (0.16-1.47); MONOCYTES PERCENT AUTO 10 % (4-13); Mean Corpuscular HGB 30.1 pg (26.0-34.0); Mean Corpuscular HGB Conc 31.7 g/dL (31.5-36.5); Mean Corpuscular Volume 95 fL (80-100); NEUTROPHILS ABSOLUTE AUTO 3.15 K/mm3 (1.96-9.15); NEUTROPHILS PERCENT AUTO 80 % (41-73); Platelet Count 88 K/mm3 (150-400); RDW Coefficient Variation 13.3 % (11.7-14.2); RDW Standard Deviation 46.5 fL (35.1-46.3); Red Blood Cell Count 3.82 M/mm3 (3.80-5.20); White Blood Cell Count 3.93 K/mm3 (4.00-11.30)
[2021-03-12 15:21] LABS: Albumin, Blood 3.5 g/dL (3.4-5.0); Bilirubin, Total 0.3 mg/dL (0.1-1.0); Bun/Creatinine Ratio 20.2 (12.0-20.0); Calcium, Blood 8.4 mg/dL (8.5-10.1); Creatinine, Blood 1.88 mg/dL (0.40-1.00); Globulin, Blood 3.4 g/dL (2.2-4.0); Magnesium, Blood 1.7 mg/dL (1.6-2.4); Potassium, Blood 4.7 mmol/L (3.5-5.5); Total Protein, Blood 6.9 g/dL (6.4-8.2)
[2021-03-12 16:49] LABS: International Normalized Ratio 0.98; Prothrombin Time Results 10.6 Sec (9.7-11.5)
[2021-03-12] MEDS ORDERED: Ventolin/Prove6.7 GM INH (17:09)
[2021-03-12] MEDS ORDERED: TRAZ50 PO (17:11)
[2021-03-12] MEDS ORDERED: METO25ER PO (17:54)
--- NOTE | 2021-03-12 23:07 | NUR ---
PATIENT ARRIVED TO THE FLOOR RIGHT AT SHIFT CHANGE. AOX3. SBA ASSIST, WEAK ON LEGS PER SILO MAN. HAD BOTH OF HER COVID IMMUNITATIONS BUT SHE TAKES ANTI-REJECT MEDICATION FOR HER LIVER TRANSPLANT THAT SHE HAD YEARS AGO, LOWER HER IMMUNE SYSTEM. SHE ENDED UP CATCHING COVID FROM HER DAUGHTER, POSITIVE TEST WAS 10 DAYS AGO. SYMPTOMS STARTED 3 DAYS AGO. LUNGS DIMINISHED, SHE IS BREATHING SHALLOW IT IS PAINFUL TO TAKE A DEEP BREATH OR COUGH. BLOOD SUGAR ELEVATED AT 250, GAVE INSULIN. NIGHT MEDS GIVEN. PROVIDED HER A SNACK. ON RA. VS WNL. CALL LIGHT IN REACH.
[2021-03-13 05:24] LABS: BASOPHILS PERCENT AUTO 0 % (0-2); EOSINOPHILS PERCENT AUTO 0 % (0-6); Hemoglobin 10.8 g/dL (11.5-16.0); IMMATURE GRAN ABSOLUTE AUTO 0.02 K/mm3 (0.00-0.10); IMMATURE GRAN PERCENT AUTO 1 % (0-1); LYMPHOCYTES ABSOLUTE AUTO 0.17 K/mm3 (0.84-5.20); LYMPHOCYTES PERCENT AUTO 12 % (21-46); MONOCYTES ABSOLUTE AUTO 0.08 K/mm3 (0.16-1.47); MONOCYTES PERCENT AUTO 6 % (4-13); Mean Corpuscular HGB 30.5 pg (26.0-34.0); Mean Corpuscular HGB Conc 31.8 g/dL (31.5-36.5); Mean Corpuscular Volume 96 fL (80-100); Mean Platelet Volume 12.5 fL (9.1-12.4); NEUTROPHILS ABSOLUTE AUTO 1.13 K/mm3 (1.96-9.15); NEUTROPHILS PERCENT AUTO 81 % (41-73); Platelet Count 71 K/mm3 (150-400); RDW Coefficient Variation 13.2 % (11.7-14.2); RDW Standard Deviation 47.5 fL (35.1-46.3); Red Blood Cell Count 3.54 M/mm3 (3.80-5.20)
[2021-03-13 06:10] LABS: Bun/Creatinine Ratio 21.6 (12.0-20.0); Calcium, Blood 7.8 mg/dL (8.5-10.1); Creatinine, Blood 2.22 mg/dL (0.40-1.00); Potassium, Blood 4.7 mmol/L (3.5-5.5)
--- NOTE | 2021-03-13 06:39 | NUR ---
SHIFT SUMMARY: COVID + AFTER RECEIVING BOTH THE VACCINATIONS. LOW IMMUNE SYSTEM DUE TO ANTI-REJECTION MEDICATON FOR HER LIVER TRANSPLANT. POSITIVE ON 03/02/21, SYMPTOMS STARTED 3 DAYS AGO. NO PAIN, SOB JUST STARTING TO BE MORE FREQUENT. COUGH DRY HARSH AND PAINFUL IN THE CHEST AREA. CONGESTION OF THE NOSE, AND WHEN SHE BLOWS HER NOSE SHE IS GETTING BLOODY DRAINAGE. GAVE SOME LUBERCANT. NO EDEMA. MILD CHANGE IN TASTE. APPETITE FAIR. WEAK IN BLE. AND TIRED ALL THE TIME. VS WNL, AFEBRILE. CALL LIGHT IN REACH AND USED APPROPRIATLY.
[2021-03-14 05:13] LABS: BASOPHILS ABSOLUTE AUTO 0.01 K/mm3 (0.00-0.23); BASOPHILS PERCENT AUTO 1 % (0-2); EOSINOPHILS PERCENT AUTO 0 % (0-6); Hemoglobin 10.9 g/dL (11.5-16.0); IMMATURE GRAN ABSOLUTE AUTO 0.03 K/mm3 (0.00-0.10); IMMATURE GRAN PERCENT AUTO 1 % (0-1); LYMPHOCYTES ABSOLUTE AUTO 0.28 K/mm3 (0.84-5.20); LYMPHOCYTES PERCENT AUTO 13 % (21-46); MONOCYTES ABSOLUTE AUTO 0.28 K/mm3 (0.16-1.47); MONOCYTES PERCENT AUTO 13 % (4-13); Mean Corpuscular HGB 30.2 pg (26.0-34.0); Mean Corpuscular HGB Conc 32.1 g/dL (31.5-36.5); Mean Corpuscular Volume 94 fL (80-100); Mean Platelet Volume 12.4 fL (9.1-12.4); NEUTROPHILS ABSOLUTE AUTO 1.61 K/mm3 (1.96-9.15); NEUTROPHILS PERCENT AUTO 73 % (41-73); Platelet Count 78 K/mm3 (150-400); RDW Coefficient Variation 12.8 % (11.7-14.2); RDW Standard Deviation 44.6 fL (35.1-46.3); Red Blood Cell Count 3.61 M/mm3 (3.80-5.20); White Blood Cell Count 2.21 K/mm3 (4.00-11.30)
--- NOTE | 2021-03-14 05:39 | NUR ---
SHIFT SUMMARY LYING IN SEMI FOWLERS WITH EYES OPEN WHILE WATCHING TV IN ROOM, HAS RESTED OFF AND ON. GOOD PULSES, CAP REFILL <3 SEC, PICKARD. PAIN MANAGED PER EMAR. CONTINUES WITH IV ABX FOR PNA. IS ON DROPLETTE PRECAUTIONS FOR COVID (+) STATUS. NO SIGNIFICANT CHANGES NOTED THIS SHIFT. DENIES FURTHER NEEDS AT THIS TIME. SAFETY MEASURES IN PLACE. WILL CONTINUE TO MONITOR FOR CHANGES/NEEDS AND ADDRESS THEM THEY ARISE. WILL GIVE HAND OFF TO ONCOMING SHIFT USING SBAR DURING BEDSIDE REPORT.
[2021-03-14 05:46] LABS: Albumin, Blood 3.3 g/dL (3.4-5.0); Bilirubin, Total 0.3 mg/dL (0.1-1.0); Bun/Creatinine Ratio 26.1 (12.0-20.0); Creatinine, Blood 2.3 mg/dL (0.40-1.00); Globulin, Blood 3.4 g/dL (2.2-4.0); Potassium, Blood 4.7 mmol/L (3.5-5.5); Total Protein, Blood 6.7 g/dL (6.4-8.2)
--- NOTE | 2021-03-15 04:22 | NUR ---
SUMMARY NO NEW ISSUES NOTED. PT DENIES SOB. PT ONLY CONCERN IS ONGOING MUCUS BM'S. PT HAS SLEPT WELL T/O SHIFT. PT CURRENTLY SLEEPING IN NO DISTRESS.CALL LIGHT IN REACH.
[2021-03-15 05:59] LABS: BASOPHILS PERCENT AUTO 0 % (0-2); EOSINOPHILS PERCENT AUTO 0 % (0-6); Hematocrit 34.4 % (33.0-51.0); Hemoglobin 11.2 g/dL (11.5-16.0); IMMATURE GRAN ABSOLUTE AUTO 0.08 K/mm3 (0.00-0.10); IMMATURE GRAN PERCENT AUTO 2 % (0-1); LYMPHOCYTES ABSOLUTE AUTO 0.28 K/mm3 (0.84-5.20); LYMPHOCYTES PERCENT AUTO 8 % (21-46); MONOCYTES ABSOLUTE AUTO 0.25 K/mm3 (0.16-1.47); MONOCYTES PERCENT AUTO 7 % (4-13); Mean Corpuscular HGB 30.9 pg (26.0-34.0); Mean Corpuscular HGB Conc 32.6 g/dL (31.5-36.5); Mean Corpuscular Volume 95 fL (80-100); Mean Platelet Volume 12.5 fL (9.1-12.4); NEUTROPHILS ABSOLUTE AUTO 2.98 K/mm3 (1.96-9.15); NEUTROPHILS PERCENT AUTO 83 % (41-73); Platelet Count 80 K/mm3 (150-400); RDW Coefficient Variation 12.8 % (11.7-14.2); RDW Standard Deviation 44.8 fL (35.1-46.3); Red Blood Cell Count 3.63 M/mm3 (3.80-5.20); White Blood Cell Count 3.59 K/mm3 (4.00-11.30)
[2021-03-15] MEDS ORDERED: Aspir 8181 MG PO (12:21)
[2021-03-15] MEDS ORDERED: OXYM.05NI (12:24)
[2021-03-15] MEDS ORDERED: VISBIOME 112.51 EACH PO (12:25)
--- NOTE | 2021-03-15 14:35 | NUR ---
PT DISCHARGED THE PT VERBALIZED UNDERSTANDING OF THE DC INSTRUCTIONS, THE PT APPEARED TO BE BREATHING EAILY AT THE TIME OF DC, THE PTS PRESCRIPTION WAS FAXED TO [facility] REQUESTED, THE WAS TRANSFRED VIA WHEELCHAIR ACCOMPANIED BY THE TRIMMER OPERATOR AND HER , A CALL WAS MADE TO HER PCP REGAURDING FOLLOW UP THEY WILL CALL HER WITH AN APPOINTMENT, THE PT WAS REMINDED TO STAY QUARANTEED DR. SOUTH INSTRUCTED
--- NOTE | 2021-03-16 21:34 | NUR ---
REVIEWED PT'S INFORMATION, PT AND PT'S DAUGHTER CALLED WITH QUESTIONS
== END 2021-03-15 14:17 | disposition home or self-care (01) | DRG 871 ==
LOC: ER 13:33 → MEDS 13:34 → ENPENDDIS 03-15 12:06 → MEDS 03-15 14:17
PROVIDERS: Emergency Medicine; Internal Medicine; ADMIT Family Medicine
PROC: 3E0333Z Introduction of Anti-inflammatory into Peripheral Vein, Percutaneous Approach (ICD-10-PCS; principal; 2021-03-12)
DX: A41.89 Other specified sepsis (principal); U07.1 COVID-19; J12.82 Pneumonia due to coronavirus disease 2019; Z94.4 Liver transplant status; Z79.82 Long term (current) use of aspirin; N18.30 Chronic kidney disease, stage 3 unspecified; Z87.891 Personal history of nicotine dependence; Z79.4 Long term (current) use of insulin; E66.9 Obesity, unspecified; J45.909 Unspecified asthma, uncomplicated; D69.6 Thrombocytopenia, unspecified; Z68.32 Body mass index [BMI] 32.0-32.9, adult; E11.22 Type 2 diabetes mellitus with diabetic chronic kidney disease
CPT/HCPCS: 36415; 71045; 80048; 80053; 80197; 82947; 83605; 83735; 83880; 84145; 84484; 85025; 85610; 87040; 93005; 93010; 96365; 96375; 96376; 99285-25; A9270; J0456; J0696; J1100; J1650; J2405; J7030; J7050; J7507; J7517

== ENCOUNTER 2021-03-17 12:11 | Inpatient (IN) | payer MEDICARE ==
[~2021-03-17] VITALS: Ht 160 cm; Wt 84.1 kg
[~2021-03-17 12:11] MED LIST changes: +ALLO100 PO; +Aspir 8181 MG PO; +BASAGLAR K100 UNIT/8 SC; +Cellcept500 MG PO; +FORTEO2.4 ML SC; +METO50ER PO; +OXYM.05NI; +Pravastatin Sod80 MG PO; +TRAZ50 PO; +VISBIOME 112.51 EACH PO
[2021-03-17 13:19] LABS: BASOPHILS ABSOLUTE AUTO 0.02 K/mm3 (0.00-0.23); BASOPHILS PERCENT AUTO 0 % (0-2); EOSINOPHILS PERCENT AUTO 0 % (0-6); Hematocrit 35.5 % (33.0-51.0); IMMATURE GRAN ABSOLUTE AUTO 0.24 K/mm3 (0.00-0.10); IMMATURE GRAN PERCENT AUTO 2 % (0-1); LYMPHOCYTES ABSOLUTE AUTO 0.27 K/mm3 (0.84-5.20); LYMPHOCYTES PERCENT AUTO 2 % (21-46); MONOCYTES ABSOLUTE AUTO 0.62 K/mm3 (0.16-1.47); MONOCYTES PERCENT AUTO 5 % (4-13); Mean Corpuscular HGB 30.7 pg (26.0-34.0); Mean Corpuscular HGB Conc 33.8 g/dL (31.5-36.5); Mean Corpuscular Volume 91 fL (80-100); Mean Platelet Volume 12.3 fL (9.1-12.4); NEUTROPHILS ABSOLUTE AUTO 11.53 K/mm3 (1.96-9.15); NEUTROPHILS PERCENT AUTO 91 % (41-73); Platelet Count 107 K/mm3 (150-400); RDW Standard Deviation 42.5 fL (35.1-46.3); Red Blood Cell Count 3.91 M/mm3 (3.80-5.20); White Blood Cell Count 12.68 K/mm3 (4.00-11.30)
[2021-03-17 13:38] LABS: Alanine Aminotransfer (ALT/SGP 32 U/L (12-78); Albumin, Blood 3.6 g/dL (3.4-5.0); Alk Phos 97 U/L (50-136); Anion Gap 8 mmol/L (6-16); Aspartate Aminotrans (AST/SGOT 26 U/L (12-37); Bilirubin, Total 0.6 mg/dL (0.1-1.0); Blood Urea Nitrogen 68 mg/dL (8-24); Bun/Creatinine Ratio 35.8 (12.0-20.0); CO2, Blood 20 mmol/L (21-32); Calcium, Blood 8.9 mg/dL (8.5-10.1); Chloride, Blood 111 mmol/L (98-108); Globulin, Blood 3.6 g/dL (2.2-4.0); Glomerular Filtration Rate 28 (60-); Glucose, Blood 251 mg/dL (70-99); Potassium, Blood 4.4 mmol/L (3.5-5.5); Sodium, Blood 139 mmol/L (136-145); Total Protein, Blood 7.2 g/dL (6.4-8.2); Troponin I <0.015 ng/mL (0.000-0.040)
[2021-03-17] MEDS ORDERED: DEXA6 PO (16:06)
--- NOTE | 2021-03-17 17:02 | NUR ---
UPDATE AT BEDSIDE, PT DIDN'T SEEM TO RECOGNIZE HER AT FIRST, BUT HE HAS BEEN LETHARGIC, SLEEPING SINCE LAST DOSE OF ATIVAN. PRECEDEX WAS SUBSEQUENTLY TURNED DOWN TO 0.5 MCG/KG/HR. CIWA < 8 CURRENTLY, WHILE HE IS SLEEPING AND EVEN WHEN AWAKE PT IS CALM . HE HAS BEEN INTERMITTENTLY REQUIRING 2L NC WHILE ASLEEP, SPO2 DIPS TO 86-90% (BUT OFTEN WILL COME BACK UP ON ITS OWN, AND FAIRLY QUICKLY). WILL CONTINUE TO MONITOR. PT DOING WELL IN CHARLENE/VEST ONLY (SWB RESTRAINTS HAVE BEEN OFF SINCE 1429), HE IS NOT ATTEMPTING TO PULL ON ANY LINES, CHORDS, OR TUBES. SINCE SWB RESTRAINTS HAVE BEEN OFF - PT IS LESS ANXIOUS/PARANOID.
--- NOTE | 2021-03-17 19:20 | NUR ---
ARRIVAL TO ICU PT TO ICU 11 VIA STRETCHER AT AROUND 1715. SHE IS ALERT AND ORIENTED X 4, AND ON 4L NC - INITIAL SPO2 WAS 92-94%. VSS, MAP>65, AFEBRILE. PT DENIED CHEST PAIN, AND NAUSEA - BUT SHE WAS C/O OF FEELING WEAK, SOB WITH ANY EXERTION, AND HER LACK OF APPETITE. SHE WAS ASLO FEELING VERY COLD, AND WAS TREMULOUS (WHICH SHE HAS MILD TREMERS AT BASELINE, BUT IT HAS WORSENED SINCE GOING THROUGH THIS RECENT ILLNESS). PT HAD NEEDED TO USE THE RESTROOM AND SHE TRANSFERRED TO THE BEDSIDE COMMODE WITH THIS RN AND HER . SHE HAD A BM (SOFT, LOOSE, BROWN AND SMALL) ALONG WITH VOIDING, SHE HAD DE-SATTED INTO THE 84-89% RANGE, AND UPON RETURNING TO BED AND RESTING - IT TOOK HER AROUND 15 MINUTES BEFORE BEING ABLE TO MAINTAIN HER SPO2 > 90-92%. WHEN SHE TRANSFERRED, SHE WAS PLACED ON 8L OXYMIZER FOR THE HIGHER FLOW. PT IS NOT HAVING A FREQUENT COUGH, AND WHEN SHE WAS ABLE TO TOLERATE SOME FLUIDS WHEN HER RR CAME DOWN TO A 20-25 RANGE. SHE EVEN TRIED SOME PUDDING AND APPLE SAUCE, SHE TOLERATED IT WELL, NO ISSUES WITH SWALLOWING. DURING THIS TIME SHE WAS ABLE TO MAINTAIN HER SPOW ~92%. HER 1800 DOSE OF LASIX WAS HELD SHE HAD EXERTED A LOT JUST TO GET TO THE COMMODE AND BACK, AND THE SUBSEQUENT RECOVERY PERIOD. SHE INITIALLY WAS AGAINST THE IDEA OF INSERTING A MEJIA CATHETER, BUT SHE IS UNDERSTANDING THAT SHE MAY NEED ONE NOW - PASSED THIS ON TO THE ONCOMING NURSE. TILL THEN IT WAS THOUGHT TO HOLD THE MEJIA FOR PATIENT's SAFETY. AT BEDSIDE, BEING AVAILABLE TO ANSWER QUESTIONS AND TO ASSIST HIS . BED LOW AND LOCKED. CALL LIGHT WITHIN REACH. REPORTED OFF TO ARNULFO AVINA
--- NOTE | 2021-03-17 23:46 | NUR ---
CARE UPDATE: CALLED [facility]-HOSPITALIST FOR NEW ORERS FOR PATIENT. PATIENT NEEDS ORDERS FOR BLOOD GLUCOSE TO BE CHECKED AND INSULIN ORDERS FOR COVERAGE. PATIENT WAS GIVEN HER USUAL 18 UNITS OF LANTUS AT BEDTIME BUT WAS TOLD IT IS A "DAY SHIFT PROBLEM." NO NEW ORDERS PLACED FOR THIS PATIENT
[2021-03-18 03:41] LABS: BASOPHILS ABSOLUTE AUTO 0.02 K/mm3 (0.00-0.23); BASOPHILS PERCENT AUTO 0 % (0-2); EOSINOPHILS PERCENT AUTO 0 % (0-6); Hematocrit 33.3 % (33.0-51.0); Hemoglobin 10.9 g/dL (11.5-16.0); IMMATURE GRAN ABSOLUTE AUTO 0.15 K/mm3 (0.00-0.10); IMMATURE GRAN PERCENT AUTO 3 % (0-1); LYMPHOCYTES PERCENT AUTO 5 % (21-46); MONOCYTES ABSOLUTE AUTO 0.35 K/mm3 (0.16-1.47); MONOCYTES PERCENT AUTO 6 % (4-13); Mean Corpuscular HGB 30.3 pg (26.0-34.0); Mean Corpuscular HGB Conc 32.7 g/dL (31.5-36.5); Mean Corpuscular Volume 93 fL (80-100); NEUTROPHILS ABSOLUTE AUTO 4.69 K/mm3 (1.96-9.15); NEUTROPHILS PERCENT AUTO 85 % (41-73); Platelet Count 96 K/mm3 (150-400); RDW Coefficient Variation 12.8 % (11.7-14.2); RDW Standard Deviation 43.8 fL (35.1-46.3); White Blood Cell Count 5.51 K/mm3 (4.00-11.30)
[2021-03-18 04:39] LABS: Bun/Creatinine Ratio 37.3 (12.0-20.0); Calcium, Blood 8.5 mg/dL (8.5-10.1); Creatinine, Blood 2.09 mg/dL (0.40-1.00); Potassium, Blood 5.5 mmol/L (3.5-5.5)
[2021-03-18 05:51] LABS: Source, Urine Catheter
[2021-03-18 05:53] LABS: Bilirubin, Urine Neg (Neg); Blood, Urine 1+ (Neg); Glucose Qualitative, Urine 4+ (Neg); Ketones, Urine Neg (Neg); Leukocyte Esterase, Urine Neg (Neg); Nitrite, Urine Neg (Neg); Protein, Urine 2+ (Neg); Urobilinogen, Urine NORM (Normal)
[2021-03-18 05:55] LABS: Appearance, Urine Clear (Clear); Color, Urine Yellow (P-Yellow)
[2021-03-18 05:59] LABS: Bacteria Not Seen /hpf; Red Blood Cells, Urine 0-2 /hpf (0-2); Squamous Epithelial Cells Not Seen /hpf (Few); White Blood Cells, Urine 0-2 /hpf (0-5)
[2021-03-18 06:00] LABS: Hyaline Casts 0-2 /lpf (0-2)
--- NOTE | 2021-03-18 06:06 | NUR ---
END OF SHIFT SUMMARY: PATIENT A/O X4 AND IS VERY PLEASANT. SHE HAS BEEN RESTING COMFORTABLY IN NSR, ON 6L NC, AND BP HAS REMAINED STABLE. PATIENT HAS SLEPT THE MAJORITY OF THE NIGHT AND CALLS WHEN NEEDS ASSISTANCE. MEJIA CATHETER PLACED DUE TO DECREASED O2 SATS WHEN AMBULATING TO USE THE CAMNODE WITH A HARD TIME RECOVERING AND LASIX IS ORDERED. PATIENT DOING WELL WITH REPOSITIONING SELF AND HAS BEEN LAYING ON SIDES JENY Marie[EE[ING
--- NOTE | 2021-03-18 08:00 | NUR ---
ASSUMED CARE RECEIVED REPORT FROM ARNULFO AVINA. PT IS SLEEPING ON HER RIGHT SIDE, ON 7L HFNC WITH HUMIDITY (RT INCREASED FROM 6 TO 7L THIS MORNING) - SPO2 HAS BEEN 92-96% WITH A RR OF 16-24 AT REST. PT IN SINUS RHYTHM, RATE 70-80s, BP STABLE TO MILDLY ELEVATED, MAP > 65. PT IS ON TACROLIMUS AND SHE TOLD THE RT EARLIER THAT IT NEEDS TO BE GIVEN SPECIFICALLY AT 1000, WHICH IS WHEN SHE TAKES HER MEDS AT HOME (1000 AND 2200 EVERYDAY). WILL FOLLOW UP ON THIS, IT IS IMPORTANT TO GIVE THIS KIND OF MEDICATION AT SPECIFIC TIMES. BED LOW AND LOCKED. CALL LIGHT WITHIN REACH.
--- NOTE | 2021-03-18 12:18 | NUR ---
UPDATE - AIRVO AT REST PT DENIES SOB, AND IS ABLE TO MAINTAIN SPO2 AT 92% OR GREATER. PT SLEPT IN THIS MORNING SHE DID NOT GET GOOD SLEEP LAST NIGHT, AND HER MORNING MEDS ARE TO BE TAKEN AT 1000 FROM NOW ON. AFTER TAKING HER MEDS, SHE WAS TRYING TO EAT - DURING THIS PERIOD OF TIME SHE STARTED TO BECOME DYSPNEIC, AND A LITTLE ANXIOUS. HER SPO2 DID DROP TO A LOW OF 80%, BUT SHE WAS IN A RANGE FROM 80% TO 90% WHILE RECOVERING. HER RECOVERY PERIOD LASTED AT LEAST 15 MINUTES, IT WAS DIFFICULT FOR HER TO CATCH UP WITH HER BREATHING. SHE WAS HAVING TROUBLE BREATHING THROUGH HER NOSE IT IS "A LITTLE STUFFY", HFNC WAS PLACED IN HER MOUTH, AND TURNED UP TO 10L, WITH MINIMUM RESULTS AT FIRST, SPO2 WAS BETWEEN 86-90%. AFTER 15-20 MINUTES SHE WAS BACK TO HER REST STATE OF SPO2 > 92% BUT WAS TOO TIRED TO EAT ANYTHING ( THIS LACK OF APPETITE HAS BEEN A BIG CONCERN/STRESSOR FOR HER SHE HAS NOT HAD MUCH NUTRITION LATELY). AFTER DISCUSSING SITUATION WITH SUMMER, AND SHE SHARED HER EXPERIENCE THIS MORNING WITH THE PT's DESATURATION DURING THE INHALER ADMINISTRATION - IT WAS DECIDED OT PLACE PT ON THE AIRVO TO GIVE THE PT INCREASED FLOW TO HELP HER GET THROUGH ACTIVITIES THAT REQUIRE EXERTION, AND THE GOAL IS IT WILL HELP HER HAVE ENOUGH ENERGY TO EAT. WILL CONTINUE TO MONITOR. AIRVO IS AT 40L, 60%. SPO2 95% OR GREATER. PT SLEEPING ON HER LEFT SIDE CURRENTLY, RESTING. RR 18-24 CURRENTLY.
--- NOTE | 2021-03-18 16:17 | NUR ---
UPDATE AFTER A LONG NAP - THE PT HAD A LATE LUNCH. SHE WAS ABLE TO EAT A PORTION OF HER SOUP AND PUDDING. SHE HAS BEEN SIPPING ON WATER T/O THE DAY. HER SUGAR WAS 336, AND SHE RECEIVED 3 UNITS. THOUGH, 9 UNITS OF HUMALOG WAS THE ASSOCIATED COVERAGE, BUT SHE HAD DROPPED 77 UNITS FROM THIS MORNING (~1000) BECAUSE SHE RECEIVED 12 UNITS AND SINCE HADN'T ATE ANYTHING, IT WAS DECIDED TO HOLD 6 UNITS A SAFETY PRECAUTION - SHE DOES NOT HAVE GOOD INTAKE OF YET. WILL CONTINUE TO MONITOR. VSS. SPO2 94-97% AT REST ON AIRVO, WHILE EATING AND/OR TALKING HER SPO2 IS 89-92%. AIRVO IS 40L, 60% FIO2 (WAS BUMPED UP TO 75% WHILE SHE WAS EATING).
--- NOTE | 2021-03-18 19:34 | NUR ---
UPDATE-END OF SHIFT NO ACUTE CHANGES SINCE LAST UPDATE. PT WAS ABLE TO EAT HER SOUP, AND A FRUIT CUP FOR DINNER AND SHE TOLERATED IT BETTER THAN HER LAST MEAL. HER SUGAR DID INCREASE > 400, SO SHE WAS COVERED WITH THE RECOMMENDED AMOUNT OF HUMALOG (15 UNITS). HER AIRVO IS AT 40 LPM, AND 70% FIO2, THOUGH IT WAS JUST INCREASED FROM 60% TO HELP SUPPORT HER DURING HER DINNER. SPO2 > 92% AT REST. HOWEVER, SHE DOES STRUGGLE WITH RECOVERING FROM EXERTIONAL ACTIVITIES, SHE CAN DROP TO THE 80-89% RANGE. PT WAS NOT ABLE TO GET UP TO THE CHAIR TODAY, BUT DID SLEEP A GOOD CHUNK OF THE DAY ON HER SIDES - AND WAS CLOSE TO BEING IN A FULL PRONE. WHEN SHE GOT CHANGED TO THE AIRVO SHE HAS BEEN ABLE TO TOLERATE MORE FOOD THAN BEFORE (BREAKFAST SHE COULDN'T EAT ANYTHING ON THE HFNC AT 6-8L). HAS BEEN UPDATED. BED LOW AND LOCKED. CALL LIGHT WITHIN REACH.
[2021-03-19 03:36] LABS: Hematocrit 31.1 % (33.0-51.0); Hemoglobin 10.6 g/dL (11.5-16.0); Mean Corpuscular HGB 30.8 pg (26.0-34.0); Mean Corpuscular HGB Conc 34.1 g/dL (31.5-36.5); Mean Corpuscular Volume 90 fL (80-100); Mean Platelet Volume 12.5 fL (9.1-12.4); Platelet Count 101 K/mm3 (150-400); RDW Coefficient Variation 12.9 % (11.7-14.2); RDW Standard Deviation 42.5 fL (35.1-46.3); Red Blood Cell Count 3.44 M/mm3 (3.80-5.20); White Blood Cell Count 6.97 K/mm3 (4.00-11.30)
[2021-03-19 03:51] LABS: Anion Gap 8 mmol/L (6-16); Blood Urea Nitrogen 80 mg/dL (8-24); Bun/Creatinine Ratio 37.9 (12.0-20.0); CO2, Blood 19 mmol/L (21-32); Calcium, Blood 8.4 mg/dL (8.5-10.1); Chloride, Blood 108 mmol/L (98-108); Creatinine, Blood 2.11 mg/dL (0.40-1.00); Glomerular Filtration Rate 25 (60-); Glucose, Blood 365 mg/dL (70-99); Magnesium, Blood 2.2 mg/dL (1.6-2.4); Potassium, Blood 5.2 mmol/L (3.5-5.5); Sodium, Blood 135 mmol/L (136-145)
[2021-03-19 03:56] LABS: BAND PERCENT MAN 1 % (0-8); BASOPHILS PERCENT MAN 0 % (0-2); EOSINOPHILS PERCENT MAN 0 % (0-6); LYMPHOCYTES ABSOLUTE MAN 0.41 K/mm3 (0.84-5.20); LYMPHOCYTES PERCENT MAN 6 % (21-46); MONOCYTES PERCENT MAN 3 % (4-13); MYELOCYTE ABSOLUTE MAN 0.13 K/mm3 (0.00-0.00); MYELOCYTE PERCENT MAN 2 % (0-0); SEG NEUTROPHILS PERCENT MAN 88 % (41-73); TOTAL CELLS COUNTED 100
--- NOTE | 2021-03-19 05:12 | NUR ---
SHIFT SUMMARY - PT HAS SLEPT THROUGHOUT MOST OF THE NIGHT. AIRVO AT 40L, FIO2 AT 55%. PT'S ONLY DISCOMFORT REPORTED IS SOB - SATS WNL THROUGHOUT THE NIGHT. PT TOLERATED PO FLUIDS WITHOUT COMPLICATIONS. CALL LIGHT WITHIN REACH. BED IN LOW POSITION. NO ACUTE CHANGES. PT HAS BEEN COOPERATIVE WITH CARE.
--- NOTE | 2021-03-19 08:15 | NUR ---
ASSESSMENT- PT AWAKE, ALERT, COOPERATIVE. STATES HAS SOME DISCOMFORT WITH BREATHING DEEP BUT STATES IS IMPROVED. TOLERATING HIGH FLOW NASAL CANNULA, SATURATIONS DO DECREASE TO 89% WITH MOVEMENT IN BED, RECOVERS QUICKLY. LUNGS CLEAR. APICAL REGULAR, BP STABLE. EATING, NO N/V. ABLE TO REPOSITION SELF. PIV INTACT RIGHT HAND. COVID POSITIVE, ENHANCED PRECAUTIONS.
--- NOTE | 2021-03-19 10:12 | NUR ---
AM CARE DONE, BATH. ABLE TO TURN FOR REPOSITIONING. SATURATIONS STABLE. SINUS. FATIGUES EASILY.
--- NOTE | 2021-03-19 11:59 | NUR ---
DR. CASTRO HERE-UPDATED WITH LABS, HELD PO POTASSIUM. PT STATES FATIGUED AFTER BATH. ABLE TO TURN SELF BUT VERY TIRED. RESPIRATIONS 20 BPM, NO CHEST PAIN. STATES THAT "LUNGS HURT TO TAKE DEEP BREATHS". BLOOD SUGAR ELEVATED, COVERED PER ORDERS. NO APPETITE.
--- NOTE | 2021-03-19 15:32 | NUR ---
BLOOD SUGAR REMAINS ELEVATED, NOTIFIED DR. CASTRO-EXTRA DOSE 10 UNITS REGULAR INSULIN SQ GIVEN. PT SLEPT FOR FEW HOURS. STATES FEELS BETTER BUT STILL TIRED. ABLE TO REPOSITION TO PRONE POSITION BY SELF. SINUS RHYTHM, BP STABLE. C/O NASAL SORENESS/DRYNESS. HIGH FLOW TUBING CHANGED BY THERAPIST TO DIFFERENT SIZE. DAUGHTER AND BOTH CALLED-UDPATED PER PT'S REQUEST
--- NOTE | 2021-03-19 17:01 | NUR ---
TRANSPLANT PHYSICIAN- [facility] DR. NAKIA CORTES. TEXTED OFFICE FOR PHONE NUMBER. PT WILL GIVE US NUMBER WHEN ABLE.
--- NOTE | 2021-03-19 18:00 | NUR ---
PT HAS BEEN ABLE TO SLEEP ON HER STOMACH FOR TWO HOURS, OXYGEN SATURATIONS UP TO 95% AT REST. DID DESAT TO 85% WITH TURNING SUPINE, SLOW RECOVERY. LUNGS NOW HAVE CRACKLES BIBASILAR. TOLERATING NEW NASAL PRONGS BETTER, HIGH FLOW UNCHANGED 50 L FLOW 30% BLOOD SUGAR ELEVATED BUT IMRPOVING, COVERED PER ORDERS. 25% DINNER. PT'S HERE-UDPATED, VISITING WITH PT. HAD BROUGHT PT'S FORTEO MEDICATION BUT IT REQUIRES REFRIGERATION BETWEEN DOSES, NOTIFIED DR. CASTRO-TO HOLD MED FOR NOW. TALKATIVE, ABLE TO VISIT. UO ADEQUATE. NO EDEMA. SINUS RHYTHM. CONTINUE TO MONITOR
[2021-03-20 03:35] LABS: Hematocrit 30.9 % (33.0-51.0); Hemoglobin 10.4 g/dL (11.5-16.0); Mean Corpuscular HGB 30.1 pg (26.0-34.0); Mean Corpuscular HGB Conc 33.7 g/dL (31.5-36.5); Mean Corpuscular Volume 90 fL (80-100); Mean Platelet Volume 12.3 fL (9.1-12.4); NRBC ABSOLUTE 0.02 K/mm3 (0.00-0.02); NRBC Auto 0.2 /100 WBC (0.0-0.2); Platelet Count 119 K/mm3 (150-400); RDW Coefficient Variation 12.7 % (11.7-14.2); RDW Standard Deviation 41.5 fL (35.1-46.3); Red Blood Cell Count 3.45 M/mm3 (3.80-5.20); White Blood Cell Count 9.04 K/mm3 (4.00-11.30)
[2021-03-20 03:52] LABS: Albumin/Globulin Ratio 0.9 (0.8-1.8); Bilirubin, Total 0.3 mg/dL (0.1-1.0); Bun/Creatinine Ratio 36.5 (12.0-20.0); Calcium, Blood 8.7 mg/dL (8.5-10.1); Creatinine, Blood 2.44 mg/dL (0.40-1.00); Globulin, Blood 3.3 g/dL (2.2-4.0); Potassium, Blood 4.9 mmol/L (3.5-5.5); Total Protein, Blood 6.3 g/dL (6.4-8.2)
[2021-03-20 04:09] LABS: BASOPHILS PERCENT MAN 0 % (0-2); EOSINOPHILS PERCENT MAN 0 % (0-6); LYMPHOCYTES ABSOLUTE MAN 0.27 K/mm3 (0.84-5.20); LYMPHOCYTES PERCENT MAN 3 % (21-46); MONOCYTES ABSOLUTE MAN 0.27 K/mm3 (0.16-1.47); MONOCYTES PERCENT MAN 3 % (4-13); NEUTROPHILS ABSOLUTE MAN 8.49 K/mm3 (1.96-9.15); SEG NEUTROPHILS PERCENT MAN 94 % (41-73); TOTAL CELLS COUNTED 100
--- NOTE | 2021-03-20 05:20 | NUR ---
SHIFT SUMMARY NO ACUTE CHANGES THIS SHIFT. PT AXO. ON AIRVO, 30L 50% FIO2 WITH SATS >93% PRONING AND RANGING FROM 88-93% SUPINE. LUNGS CLEAR WITH BIBASILAR CRACKLES. PT STATES BREATHING APPEARS TO BE GETTING "EASIER" FOR HER. PT BLOOD SUGARS BETTER CONTROLLED THIS SHIFT WITH NEW INSULIN REGIMEN. MEJIA PATENT AND DRAINING TO GRAVITY. MOST OF NIGHT, PT RESATING. STATES FEELING EXHAUSTED AND WANTS TO BE WELL RESTED IN THE AM FOR PT/OT. OTHERWISE, PT RESTING N ROOM QUIETELY, USES CALL LIGHT APPROPRIAELY. [facility] ORDERED 1HR BEFORE ADMINISTRATION TIME, (0900), THIS AM TO VERIFY VALIDITY OF HIGH VALUE ON 03/19/21. WCTM.
--- NOTE | 2021-03-20 08:00 | NUR ---
ASSUMED CARE PT RESTING COMFORTABLY IN BED AT THIS TIME. A&O X4. INITIALLY AIRVO AT 30L/MIN, 50% FIO2 SAT >90%, PT CONTINUED TO DESAT IN MID 80%, RT AT BEDSIDE, AIRVO NOW AT 40L/MIN, 70% FIO2, SAT >90%. LUNG SOUNDS DIMINISHED THROUGHOUT. MEJIA CATH PATENT AND DRAINING CLEAR YELLOW URINE. PT ABLE TO TURN AND PRONE SELF INDEPENDENTLY. IV TO R HAND SALINE LOCKED AT THIS TIME. VS STABLE. WILL CONTINUE TO MONITOR.
--- NOTE | 2021-03-20 12:42 | NUR ---
DESAT PT CONTINUES TO DESAT MID 80% ON AIRVO 40ML/HR 70% FIO2. RT AT BEDSIDE. SWITCHED PT TO BIPAP 10/18 AT 80% FIO2 SAT >95%. WILL CONTINUE TO MONITOR.
--- NOTE | 2021-03-20 17:15 | NUR ---
SAT IMPROVING PT SAT IMPROVING TO >95%, ASKING TO RETURN TO HF NC, SWITCHED BACK TO HF AT 40L/MIN FIO2 80% WITH SAT >95%. WILL CONTINUE TO MONITOR.
--- NOTE | 2021-03-20 18:31 | NUR ---
SHIFT SUMMARY PT RESTING IN BED COMFORTABLY AT THIS TIME. REMAINS ON AIRVO 40L/MIN FIO2 80% WITH SAT >95%. IV TO R HAND SALINE LOCKED AT THIS TIME. TIRED TODAY THOUGH AWAKE, ALERT AND ORIENTED WHEN SPOKEN TO. PT ABLE TO REPOSITION SELF IN BED INDEPENDENTLY. VS STABLE. MEJIA CATH PATENT AND DRAING YELLOW URINE TO GRAVITY. PT SPOUSE AT BEDSIDE THIS AFTERNOON, UPDATED TO PLAN OF CARE. WILL CONTINUE TO MONITOR.
--- NOTE | 2021-03-20 18:42 | NUR ---
DOCUMENTATION REVIEW ALL ASSESSMENTS AND NOTES FROM THIS SHIFT REVIEWED. I AGREE WITH GARNISHMENT SPECIALIST DOCUMENTATION THIS SHIFT.
--- NOTE | 2021-03-20 20:10 | NUR ---
ASSUMED CARE OF PATIENT AT APPROXIMATELY 1905 FROM JESUS ALBERTO Moctezuma RN AND REGULATORY AGENCY DIRECTOR CHERY Bro PATIENT ALERT AND ORIENTED X4. TURNS SELF IN BED. PATIENT SAT UP ON SIDE OF BED WHILE DOING ORAL CARE. PATIENT DENIES PAIN, NUMBNESS, TINGLING, DIZZINESS AND NAUSEA. SR ON TELE; OXYGEN SATUATION ABOVE 90% ON AIRVO 40LPM 80% FIO2. PIV S/L. URINARY CATH DRAINING CLEAR YELLOW URINE. VSS.
--- NOTE | 2021-03-21 06:34 | NUR ---
PATIENT SLEPT ABOUT NINE HOURS LAST NIGHT; TURNED SELF IN BED; VSS. NO ACUTE CHANGES TO REPORT.
--- NOTE | 2021-03-21 09:13 | NUR ---
AM NOTE... ASSUMED CARE OF PT AT 0700. PT IS A&Ox4. PT WAS ADMITTED COVID +. PT WAS ON AIRVO AT 40l AND 80% FIO2 THIS AM WITH O2 SATS AT 92-94%. PT'S L/S EXP WHEEZES HEARD T/O WITH COARSE CRACKLES NOTED IN THE MID AND LOWER LOBES. PT STATES THAT SHE FEELS "BETTER" TODAY AND ABLE TO "TAKE DEEPER BREATHS" THAN SHE DID YESTERDAY. RR EVEN AND UNLABORED WHEN SHE IS NOT MOVING, WHEN SHE MOVES OR ATTEMTPS TO EAT HER O2 SATS DROP DOWN TO THE LOW 70'S AND IS SLOW TO RECOVER. PT IS IN NSR IN THE 80'S-90'S. BP STABLE. NO EDEMA NOTED ON ASSESSMENT. BT PRESENT AND NORMOACTIVE, ABD IS SOFT AND NONTENDER TO PALP. PT'S MEJIA IS PATENT AND DRAINING CLEAR YELLOW URINE TO GRAVITY. WHILE THIS RN WAS IN THE ROOM THE PT WAS EATING BREAKFAST, HER AIRVO SETTINGS WERE 40l AND 80%, HER O2 SATS DROPPED DOWN TO THE LOW 70'S, HER FIO2 WAS INCREASED TO 100% TO KEEP HER O2 SATS >86%. RT JACKIE WAS NOTIFIED. PT ATE ABOUT 50% OF HER BREAKFAST. WILL CONTINUE TO MONITOR.
--- NOTE | 2021-03-21 19:31 | NUR ---
SHIFT SUMMARY... PT WAS SWITCHED FROM AIRVO AT 40l AND 80%FIO2 TO BIPAP AT 12/6 AND 80% FIO2 BY RT AROUND 1400. APROX 1 HR LATER THE PT WAS TITRATED UP TO 100% FIO2 TO KEEP O2 SATS >89%. AROUND 1700 THE PT WAS TITRATED FROM 100% FIO2 TO 80% FIO2 WITH O2 SATS >90%. PT HAS VERY LITTLE ACTIVITY TOLERANCE, ONCE SHE STARTS TO MOVE IN THE BED SHE BECOMES SOB. PT AND EDUCATED ON THE BIPAP. PT'S HAD BROUGHT HER IN DINNER FOR MOTHER'S DAY, PT WAS VERY UPSET THAT SHE WAS NOT ABLE TO TAKE THE BIPAP OFF TO EAT IT. THIS RN EDUCATED THE PT AND HER ON HER CURRENT CONDITION, HOW IT HAS CHANGED SINCE THIS AM WHEN SHE WAS "FEELING BETTER" AND THAT SHE WOULD MOST LIKELY NOT BE ABLE TO TOLERATE EATING AT THIS TIME. PT AND VERBALIZED THEIR UNDERSTANDING BUT CONTINUE TO ASK ABOUT TAKING THE MASK OFF. PT'S OTHER VS STABLE T/O SHIFT. PT'S MEJIA PATENT AND DRAINING YELLOW URINE TO GRAVITY. CALL LIGHT IN REACH WILL CONTINUE TO MONITOR UNTIL REPORT IS GIVEN TO ONCOMING RN.
--- NOTE | 2021-03-22 06:34 | NUR ---
SHIFT SUMMARY NO ACUTE CHANGES THIS SHIFT. PT A&OX4. SP02>90% ON BIPAP, 10/18 80% FI02. PT DESATS TO 80'S WHEN REMOVING BIPAP TO TAKE ORAL MEDICATION. DYSPNEA W/ MOVEMENT/TALKING. TELEMETRY READS SR, HR 60'S-70'S. MEJIA DRAINING CLEAR YELLOW URINE TO GRAVITY. PT REPOSITIONS SELF. PT C/O OF FRUSTRATION ABOUT NOT BEING ABLE TO EAT D/T NEED TO BE ON BIPAP. PT SLEPT MOST OF NIGHT. CALL LIGHT IN REACH. WILL GIVE REPORT TO ONCOMING NURSE.
[2021-03-22 09:01] LABS: Hematocrit 34.2 % (33.0-51.0); Hemoglobin 11.2 g/dL (11.5-16.0)
[2021-03-22 09:02] LABS: Bun/Creatinine Ratio 43.4 (12.0-20.0); Calcium, Blood 8.6 mg/dL (8.5-10.1); Creatinine, Blood 2.49 mg/dL (0.40-1.00); Potassium, Blood 5.3 mmol/L (3.5-5.5)
--- NOTE | 2021-03-22 09:34 | NUR ---
AM NOTE... ASSUMED CARE OF PT AT 0700. PT IS A&Ox4, ON THE BIPAP AT 12/6 AND 80% WITH O2 SATS 89-94%. PT'S OTHER VS STABLE AT THIS TIME. L/S DIM AND COARSE T/O WITH CRACKLES NOTED IN THE BASES. PT IS ALSO C/O OF PLEURITIC PAIN WITH DEEP INSPIRATION. RR 14-24 EVEN AND UNLABORED UNLESS SHE IS MOVING IN THE BED THEN SHE BECOMES DYSPNIC. NO EDEMA NOTED ON ASSESSMENT. PT IS IN NSR IN THE 70'S. BP STABLE. MEJIA PATENT AND DRAINING CLEAR YELLOW URINE TO GRAVITY. BT PRESENT AND HYPERACTIVE, ABD IS SOFT AND NONTENDER TO PALP. PT HAS NOT HAD A BM SINCE 03/17. PT WAS VERY UPSET THIS MORNING ABOUT NOT BEING ABLE TO EAT ANYTHING BECAUSE SHE COULD NOT TOLERATE BEING OFF OF THE BIPAP. THE PT TOLD THIS RN "I FEEL LIKE YOU GUYS ARE DISCRIMINATING AGAINST ME BECAUSE YOU WON'T LET ME EAT." THIS RN ATTEMPTED AGAIN TO EDUCATE THE PT ON HER CURRENT RESPIRATORY STATUS AND THAT WE WOULD TRIAL HER BACK ON THE AIRVO TO SEE HOW SHE TOLERATED BEING OFF OF THE BIPAP AT THIS TIME. PT WAS TAKEN OFF OF THE BIPAP AT APROX 0830 AND PUT ON THE AIRVO, AIRVO SETTINGS OF 40l AND 80%FIO2. PT WAS TITRATED UP TO 40l AND 90% FIO2 WITH O2 SATS 88-93% WITH DROPS DOWN TO THE LOW 80'S WITH ANY TYPE OF MOVEMENT. PT WAS ENCOURAGED TO PUT THE BIPAP MASK BACK ON BUT REFUSED AT THIS TIME BECAUSE SHE WANTED TO DRINK HER COFFEE. PT'S CALLED AND WAS UPDATED. HE SAID HE WANTED STAFF TO CALL ONE OF HER [facility] DOCTOR'S FOR AN UPDATE: DR. SAIRA CORTES [phone]. WILL CONTINUE TO UPDATE.
--- NOTE | 2021-03-22 12:13 | NUR ---
PT UPDATE... PT WAS ON AIRVO AT 40l AND 85% FIO2 KEEPING HER O2 SATS 90-93%. PT WAS ATTEMPTING TO EAT LUNCH AND HER O2 SATS STARTED TO DROP DOWN TO THE LOW 70'S. PT WAS PUT BACK ON BIPAP WITH SETTINGS OF 12/8 AND 100% FIO2. PT'S O2 SATS WOULD NOT GO UP ABOVE 86%. RT WAS CALLED AND BIPAP SETTINGS CHANGED TO 14/10 AND 100% FIO2. IT TOOK OVER 8 MINS FOR THE PT'S O2 SATS TO IMPROVE TO 90%. PT HAD ALSO C/O OF NAUSEA, ZOFRAN WAS GIVEN PER EMAR. WILL CONTINUE TO MONITOR.
[2021-03-22 14:32] LABS: PCO2 Arterial 34.7 mmHg (35-45); PO2 Arterial 66.3 mmHg (80-100); pH Blood Arterial 7.36 (7.35-7.45)
[2021-03-22 16:14] LABS: Mean Platelet Volume 12.1 fL (9.1-12.4); Platelet Count 178 K/mm3 (150-400)
[2021-03-22 17:13] LABS: D-Dimer, Quantitative 0.39 mg/L FEU (0.00-0.52); International Normalized Ratio 0.98; Prothrombin Time Results 10.6 Sec (9.7-11.5)
--- NOTE | 2021-03-22 18:32 | NUR ---
SHIFT SUMMARY... PT HAS BEEN ON THE BIPAP WITH SETTINGS OF 14/10 AND 100% SINCE 1215. DR. RUIZ WAS CONSULTED. A CHEST XRAY WAS OBTAINED, AN ABG AMONG OTHER LABS (SEE LABS). PT'S AT THE BEDSIDE FOR VISITING HOURS. PT IS TO HAVE AN ECHO DONE TONIGHT WELL. AT 1815 PT'S BIPAP WAS ABLE TO BE TITRATED DOWN FROM 100% TO 80% FIO2 KEEPING HER O2 SATS >90%. PER DR. RUIZ SHE DOES NOT WANT THE PT TO EAT AT THIS TIME D/T POSSIBLE INTUBATION BUT IS OKAY WITH THE PT HAVING LIQUIDS. PT'S OTHER VS HAVE BEEN STABLE. PT HAD A BEDBATH AND LINEN CHANGE THIS SHIFT. CALL LIGHT IN REACH WILL CONTINUE TO MONITOR UNTIL REPORT IS GIVEN TO ONCOMING RN.
--- NOTE | 2021-03-22 19:18 | NUR ---
AD provided per admit trigger. Pt too frail/tired for meaningful conversation. I left information and will remain available.
--- NOTE | 2021-03-22 23:00 | NUR ---
ASSUMED CARE AT 1900 PT LAYING IN BED WITH AT BEDSIDE AND ECHO JUST STARTING. PT LEFT DURING THE ECHO. PT IS ALERT/ORIENTED X4 AND IS ABLE TO MAKE HER NEEDS KNOWN; LETHARGIC AT THIS TIME. PT ABLE TO TOLERATE SMALL BREAKS FROM BIPAP TO HIGH FLOW NC AT FIO2 70%; BIPAP PLACED BACK ON AFTER PO MED ADMINISTRATION, BIPAP SETTINGS 14/10, FIO2 80%. AFEBRILE. HR 60-70'S. BP STABLE. MEJIA PATENT AND DRAINING TO GRAVITY. POWER GLIDE TO LIVIA PATENT AND DRAWS. WITH ASSISTANCE PT IS ABLE TO TURN FROM SIDE TO SIDE IN BED BUT IS UNABLE TO PRONE. SALINE LOCKED. SEE SHIFT ASSESSMENT FOR FULL ASSESSMENT.
[2021-03-23 04:31] LABS: Hematocrit 30.9 % (33.0-51.0); Hemoglobin 10.3 g/dL (11.5-16.0); Mean Corpuscular HGB 30.5 pg (26.0-34.0); Mean Corpuscular HGB Conc 33.3 g/dL (31.5-36.5); Mean Corpuscular Volume 91 fL (80-100); Mean Platelet Volume 12.3 fL (9.1-12.4); NRBC ABSOLUTE 0.02 K/mm3 (0.00-0.02); NRBC Auto 0.2 /100 WBC (0.0-0.2); Platelet Count 163 K/mm3 (150-400); RDW Coefficient Variation 13.1 % (11.7-14.2); RDW Standard Deviation 42.9 fL (35.1-46.3); Red Blood Cell Count 3.38 M/mm3 (3.80-5.20); White Blood Cell Count 8.84 K/mm3 (4.00-11.30)
[2021-03-23 04:46] LABS: Albumin, Blood 2.6 g/dL (3.4-5.0); Anion Gap 8 mmol/L (6-16); Blood Urea Nitrogen 113 mg/dL (8-24); Bun/Creatinine Ratio 44.3 (12.0-20.0); CO2, Blood 21 mmol/L (21-32); Calcium, Blood 8.4 mg/dL (8.5-10.1); Chloride, Blood 108 mmol/L (98-108); Creatinine, Blood 2.55 mg/dL (0.40-1.00); Glomerular Filtration Rate 20 (60-); Glucose, Blood 162 mg/dL (70-99); Magnesium, Blood 2.5 mg/dL (1.6-2.4); Phosphorus, Blood 4.4 mg/dL (2.5-4.9); Potassium, Blood 5.6 mmol/L (3.5-5.5); Sodium, Blood 137 mmol/L (136-145)
[2021-03-23 04:56] LABS: BAND PERCENT MAN 2 % (0-8); BASOPHILS PERCENT MAN 0 % (0-2); EOSINOPHILS PERCENT MAN 0 % (0-6); LYMPHOCYTES ABSOLUTE MAN 0.35 K/mm3 (0.84-5.20); LYMPHOCYTES PERCENT MAN 4 % (21-46); METAMYELOCYTE ABSOLUTE MAN 0.17 K/mm3 (0.00-0.00); METAMYELOCYTE PERCENT MAN 2 % (0-0); MONOCYTES ABSOLUTE MAN 0.26 K/mm3 (0.16-1.47); MONOCYTES PERCENT MAN 3 % (4-13); MYELOCYTE ABSOLUTE MAN 0.26 K/mm3 (0.00-0.00); MYELOCYTE PERCENT MAN 3 % (0-0); NEUTROPHILS ABSOLUTE MAN 7.77 K/mm3 (1.96-9.15); SEG NEUTROPHILS PERCENT MAN 86 % (41-73); TOTAL CELLS COUNTED 100
--- NOTE | 2021-03-23 06:01 | NUR ---
END OF SHIFT SUMMARY PT SLEPT MOST OF THE NIGHT ON BIPAP WITH SETTINGS 14/10, FIO2 70%, SPO2 >90%. PT IS ALERT/ORIENTED X4 AND IS ABLE TO MAKE HER NEEDS KNOWN. AFEBRILE. HR 60-70'S. SBP 120-140. MEJIA PATENT AND DRAINING TO GRAVITY; 550ML URINE OUTPUT THIS SHIFT. SHE IS ABLE TO TOLERATE SHORT BREAKS TO DRINK SOME WATER BEFORE BIPAP MASK IS PLACED BACK ON. WAS ABLE TO TURN PT FROM SIDE TO SIDE BUT SHE DID NOT TOLERATE PRONING. WILL REPORT TO AM RN WHEN AVAILABLE.
--- NOTE | 2021-03-23 08:30 | NUR ---
ASSUMED CARE RECEIVED REPORT FROM ARNULFO CUBA. PT IS LYING DOWN IN BED, ON BIPAP 26/08, 70% FIO2 - SPO2 90-93%. MEJIA IS PATENT DRAINING YELLOW URINE. VSS. PT APPEARS TO BE IN NO DISTRESS, SHE IS CURRENTLY SLEEPING ON HER SIDE. BED LOW AND LOCKED. CALL LIGHT WITHIN REACH.
--- NOTE | 2021-03-23 10:56 | NUR ---
UPDATE: AIRVO, FLUID PT STARTED TO WAKE UP AND WAS A LITTLE ANXIOUS, WANTING A BREAK FROM THE BIPAP AND TO HAVE SOMETHING TO DRINK. HER SPO2 WAS 90-92% ON THE BIPAP. HER FIO2 WAS INCREASED TO 100% FOR 5-8 MINUTES TO PREOXYGENATE THE PT. AFTER, THE BIPAP WAS TAKEN OFF - AND THE PT TOOK A FEW SIPS OF WATER (SWALLOWING WITH NO APPARENT DIFFICULTY, NO VOICE CHANGES), THEN SHE WAS CONNECTED TO THE AIRVO WHEN HER SPO2 DID DROP < 88%. AIRVO WAS SET AT 55L, 100% FIO2, HER SPO2 INCREASED INTO THE 92-96% RANGE. SHE IS SITTING IN FOWLERS, ON THE AIRVO, TOLERATING IT WELL, JUST RESTING CURRENTLY. SHE IS AWARE THAT SHE MAY NEED THE BIPAP AGAIN. WILL CONTINUE TO MONITOR. NUTRITION IS A PRIORITY FOR THE PT. THE RISK OF ASPIRATION WAS DISCUSSED - SHE IS AWARE.
--- NOTE | 2021-03-23 19:45 | NUR ---
UPDATE/END OF SHIFT PT CURRENTLY ON AIRVO 55L, 75% FIO2, SPO2 IS 93-97% AND PT IS DENYING SOB AT REST. PT HAS AN IMPROVED APPETITE TODAY AND HAS BEEN TOLERATING FULL LIQUIDS WELL. VSS, MAP > 65, AFEBRILE. NO MAJOR CHANGES T/O DAY. PT BEEN GIVEN A FLUTTER VALVE AND AN IS AND HAS BEEN EDUCATED HOW TO USE THEM, AND SHE HAS BEEN USING THEM INTERMITTENTLY - THOUGH IT IS VERY DIFFICULT FOR HER TO USE THE IS. PT CAN REPOSITION SELF IN BED, HAD VISITED AND IS HELPFUL AT BEDSIDE. DR. RUIZ HAS VISITED PT AND SPOUSE AND ANSWERED QUESTIONS, AND GAVE AN UPDATE. DR. TADEO HAS BEEN BY TODAY AND GAVE AN UPDATE FROM HER END. PT CONTENT WITH PROGRESS TODAY. BED LOW AND LOCKED. CALL LIGHT WITHIN REACH.
--- NOTE | 2021-03-23 19:56 | NUR ---
EDIT THE NOTE TITLED "UPDATE" THAT WAS WRITTEN ON 03/17/21 AND OCCURRED AT 1702 (RECORDED AT 1708) WAS COMPLETED ON THE WRONG PATIENT. AND THIS SPECIFIC NOTE DOES NOT APPLY TO THIS PT: SAMREEN GAMBOA. THIS RN WAS THE ONE WHO INCORRECTLY CHARTED A NOTE ON THE WRONG PATIENT, BUT IT WAS CORRECTED FOR THE OTHER PATIENT.
--- NOTE | 2021-03-23 20:13 | NUR ---
ASSUMPTION OF CARE RECEIVED REPORT FROM BAR ARREDONDO. ASSUMED CARE OF PATIENT AT 1920. PATIENT IN BED WITH EYES CLOSED, EASILY AWAKENS. DENIED NEEDS OR DISCOMFORTS. AIRVO AT 55L AND 75% WITH SATS ABOVE 95%. VITALS STABLE. ASSISTED WITH REPOSITIONING. MEJIA CATHETER PATENT AND DRAINING CLEAR, YELLOW URINE. WILL REVIEW ORDERS AND TREAT PRESCRIBED.
--- NOTE | 2021-03-24 00:01 | NUR ---
REASSESSMENT NO ACUTE CHANGES FROM PREVIOUS ASSESSMENT. REPOSITIONED, AIRVO 55L AND 75% WITH SATS 90-93%. PATIENT STATES SHE IS STILL FEELING MUCH BETTER. VITALS STABLE. CALL LIGHT IN REACH.
--- NOTE | 2021-03-24 06:14 | NUR ---
SHIFT SUMMARY SEE PAPER CHARTING FOR ADDITIONAL CHARTING. NO ACUTE CHANGES THROUGH SHIFT. AIRVO REMAINS AT 55L AND 75% WITH SATS ABOVE 90%. PATIENT TURNED SELF SIDE TO SIDE FOR COMFORT. THIS MORNING STATED SHE FELT MORE DRY FROM THE OXYGEN THAN USUAL. PROVIDED WITH LUBRICANT IN NARES AND EXCHANGED FLUID BAG ON AIRVO MACHINE. PATIENT STATED THE FEELING OF BEING DRY HAD IMPROVED AND FELL BACK TO SLEEP. PATIENT TOLERATING PO INTAKE WELL. AWAITING LAB RESULTS FOR REVIEW. WILL REPORT TO ONCOMING RN.
[2021-03-24 06:21] LABS: BASOPHILS ABSOLUTE AUTO 0.04 K/mm3 (0.00-0.23); BASOPHILS PERCENT AUTO 1 % (0-2); EOSINOPHILS PERCENT AUTO 0 % (0-6); Hematocrit 44.5 % (33.0-51.0); Hemoglobin 14.9 g/dL (11.5-16.0); IMMATURE GRAN ABSOLUTE AUTO 0.38 K/mm3 (0.00-0.10); IMMATURE GRAN PERCENT AUTO 6 % (0-1); LYMPHOCYTES ABSOLUTE AUTO 0.26 K/mm3 (0.84-5.20); LYMPHOCYTES PERCENT AUTO 4 % (21-46); MONOCYTES PERCENT AUTO 6 % (4-13); Mean Corpuscular HGB Conc 33.5 g/dL (31.5-36.5); Mean Corpuscular Volume 90 fL (80-100); Mean Platelet Volume 12.4 fL (9.1-12.4); NEUTROPHILS ABSOLUTE AUTO 5.51 K/mm3 (1.96-9.15); NEUTROPHILS PERCENT AUTO 84 % (41-73); NRBC ABSOLUTE 0.03 K/mm3 (0.00-0.02); NRBC Auto 0.5 /100 WBC (0.0-0.2); Platelet Count 116 K/mm3 (150-400); RDW Coefficient Variation 13.2 % (11.7-14.2); RDW Standard Deviation 41.5 fL (35.1-46.3); Red Blood Cell Count 4.97 M/mm3 (3.80-5.20); White Blood Cell Count 6.59 K/mm3 (4.00-11.30)
[2021-03-24 06:35] LABS: Albumin, Blood 2.6 g/dL (3.4-5.0); Anion Gap 6 mmol/L (6-16); Blood Urea Nitrogen 100 mg/dL (8-24); Bun/Creatinine Ratio 52.6 (12.0-20.0); CO2, Blood 22 mmol/L (21-32); Calcium, Blood 8.6 mg/dL (8.5-10.1); Chloride, Blood 109 mmol/L (98-108); Glomerular Filtration Rate 28 (60-); Glucose, Blood 93 mg/dL (70-99); Phosphorus, Blood 3.6 mg/dL (2.5-4.9); Potassium, Blood 4.9 mmol/L (3.5-5.5); Sodium, Blood 137 mmol/L (136-145)
--- NOTE | 2021-03-24 08:00 | NUR ---
PT A&OX4-DENIES PAIN, BUT STATES THAT SHE FEELS "WORSE" TODAY. SATS TO 80'S WITH MINIMAL EXERTION. PT STATES THAT SHE IS EXHAUSTED AND HAS OT BEEN SLEEPING WELL LATELY. ECG SHOWS SR. TEMP 98.9. LUNGS DIMINISHED THROUGH OUT L>R. OCCASIONAL DRY, NONPRODUCTIVE COUGH NOTED. FIO2 TITRATED UP TO 100% TO MAINTAIN SATS>90%. CBG 80-COVERAGE HELD UNSURE HOW MUCH OF ADA DIET PT WILL BE ABLE TO CONSUME. SHE REPORTS THAT EVEN EATING CAUSES HER TO FEEL FATIGUED AND INCREASES HER SOB. PT NASAL MUCOSA IS VERY DRY. PT STATES THAT SHE FEELS FULL QUICKLY, APPETITE POOR, AND NO BM SINCE 03/17/21. MEJIA TO BSD WITH SMALL AMOUNT OF DARK, YELLOW URINE TO BSD. PT SITTING IN HIGH BLACKWOOD'S POSITION FEEDING HERSELF BREAKFAST. PLAN IS TO PROVE APROXIMATELY 30 MINUTES AFTER BREAKFAST AND TITRATE FIO2 BACK DOWN TO 75% IF TOLERATED.
--- NOTE | 2021-03-24 08:30 | NUR ---
PT ATE 100% OF BREAKFAST. STILL DYSPNEIC AND REQUIRES FIO2 100% TO KEEP SATS>90%. CATH CARE DONE, THEN ASSISTED PT TO REPOSITION TO RIGHT SIDE-RT SUNSHINE UPDATED OF INCREASED O2 REQUIREMENT-WILL MONITOR.
--- NOTE | 2021-03-24 10:37 | NUR ---
pt refered for [facility] appointment for advance directive complation with her primary care.
--- NOTE | 2021-03-24 11:59 | NUR ---
.PT HAS BEEN RESTING QUIETLY THROUGH OUT THE AM. AWAKENS TO VOICE AND DENIES PAIN. TEMP 99.2 STILL VERY SOB WITH MINIMAL EXERTION AND FIO2 100%-55LITERS ON THE AIRVO. PT ENCOURAGED TO C&DB-COUGHED UP A SMALL AMOUNT OF THICK, YELLOW/BLOOD TINGED SPUTUM. CBG 333-COVERED PER SLIDING SCALE-SEE EMAR. PT ABLE TO SCOOT HERSELF UP IN BED AND REPOSITION TO HIGH BLACKWOOD POSITION. SITTING UP IN BED FEEDING HERSELF WITHOUT NOTED DISTRESS. CALL LIGHT WITHIN REACH
--- NOTE | 2021-03-24 14:15 | NUR ---
ASSISTED PT WITH REPOSITIONING TO LEFT SIDE. FIO2 TITRATED DOWN TO 90% AND PT STILL MAINTAINING SATS>90% PT SPOUSE IN FOR VISIT-UPDATED TO VS, CURRENT STATUS, AND PLAN OF CARE.
--- NOTE | 2021-03-24 15:59 | NUR ---
PT SPOUSE ASSISTED HER TO TUNR TO RIGHT SIDE. SATS >90% ON FIO2 85% PT RESTING QUIETLY WHEN NOT DISTURBED. PT REQUESTS TO BE UNDISTURBED UNTIL 1629-REQUEST GRANTED.
--- NOTE | 2021-03-24 16:30 | NUR ---
TEMP 99.8. REMAINS DYSPNEIC AND TACHYPNEIC RR22-30- SATS BARELY MAINTAINING AT 90% WITH AIRVO 65 LITERS/ 100%. ENCOURAGED C&DB-PRODUCTIVE OF SMALL AMOUNT OF THICK, YELLOW SPUTUM. PT TOLERATING FULL LIQUID DIET FAIR-INCREASED SOB/WOB WITH EATING, DRINKING, EXERTION. CBG 203 COVERED PER SLIDING SCALE-SEE EMAR. DISCUSSED WITH PT THAT SHE MAY NEED TO GO ON THE BIPAP THIS EVENING OR TONIGHT IN ORDER TO EASE HER WOB-PT AGREES WITH THIS PLAN OF CARE.
--- NOTE | 2021-03-24 18:30 | NUR ---
PT REQUESTED TO "GO ON BIPAP" AFTER SHE FINISHED HER DINNER. RT KEISHA NOTIFIED.
--- NOTE | 2021-03-24 19:00 | NUR ---
PT PLACED ON BIPAP 14/10-FIO2 100%. ASSISTED WITH POSITIONING TO LEFT SIDE.
--- NOTE | 2021-03-24 22:38 | NUR ---
CARE ASSUMPTION PT A/0 X4. VSS. MON SR 70S. SPO2 >90% ON BIPAP 14/10 FIO2 100%. PT ON AIRVO 65L 75% WHEN NOT ON BIPAP. PT RECEIVED ORAL CARE. PT REPOSTIONED TO PRONE POSITION WITH SPO2 >90%. WILL CONTINUE TO MONITOR AND PROVIDE CAER.
--- NOTE | 2021-03-25 04:54 | NUR ---
SHIFT SUMMARY PT A/0X4. VSS. MONITOR SR 70S. PT ON BIPAP 26/08 FIO2 100% TITRATED TO FIO2 80% THIS SHIFT WITH PT TOLERATING WELL. PT ON BIPAP MAJORITY OF SHIFT, PLACED ON AIRVO 65L 75% NC FOR BREIF BREAKS AND ORAL INTAKE. PT PRONED THIS SHIFT FOR 2-3 HOURS. OTHERWISE REPOSITIONING FROM LEFT TO RIGHT SIDE. WILL CONTINUE TO MONITOR AND PROVIDE CARE UNTIL HAND OFF.
[2021-03-25 06:23] LABS: BASOPHILS ABSOLUTE AUTO 0.03 K/mm3 (0.00-0.23); BASOPHILS PERCENT AUTO 0 % (0-2); EOSINOPHILS ABSOLUTE AUTO 0.03 K/mm3 (0.00-0.68); EOSINOPHILS PERCENT AUTO 0 % (0-6); Hematocrit 29.5 % (33.0-51.0); IMMATURE GRAN ABSOLUTE AUTO 0.45 K/mm3 (0.00-0.10); IMMATURE GRAN PERCENT AUTO 4 % (0-1); LYMPHOCYTES ABSOLUTE AUTO 0.43 K/mm3 (0.84-5.20); LYMPHOCYTES PERCENT AUTO 4 % (21-46); MONOCYTES ABSOLUTE AUTO 0.51 K/mm3 (0.16-1.47); MONOCYTES PERCENT AUTO 5 % (4-13); Mean Corpuscular HGB 30.9 pg (26.0-34.0); Mean Corpuscular HGB Conc 33.9 g/dL (31.5-36.5); Mean Corpuscular Volume 91 fL (80-100); Mean Platelet Volume 11.8 fL (9.1-12.4); NEUTROPHILS ABSOLUTE AUTO 9.06 K/mm3 (1.96-9.15); NEUTROPHILS PERCENT AUTO 86 % (41-73); Platelet Count 138 K/mm3 (150-400); RDW Coefficient Variation 13.2 % (11.7-14.2); RDW Standard Deviation 41.9 fL (35.1-46.3); Red Blood Cell Count 3.24 M/mm3 (3.80-5.20); White Blood Cell Count 10.51 K/mm3 (4.00-11.30)
[2021-03-25 06:40] LABS: Albumin, Blood 2.4 g/dL (3.4-5.0); Anion Gap 6 mmol/L (6-16); Blood Urea Nitrogen 73 mg/dL (8-24); Bun/Creatinine Ratio 45.9 (12.0-20.0); CO2, Blood 22 mmol/L (21-32); Calcium, Blood 8.6 mg/dL (8.5-10.1); Chloride, Blood 112 mmol/L (98-108); Creatinine, Blood 1.59 mg/dL (0.40-1.00); Glomerular Filtration Rate 34 (60-); Glucose, Blood 104 mg/dL (70-99); Phosphorus, Blood 2.7 mg/dL (2.5-4.9); Potassium, Blood 4.9 mmol/L (3.5-5.5); Sodium, Blood 140 mmol/L (136-145)
--- NOTE | 2021-03-25 08:00 | NUR ---
PT A&OX4. STATES THAT SHE SLEPT WELL LAST NIGHT WITH THE BIPAP ON. AIR 65L/80% PLACED AND PT MAINTAINING SATS>90% EXERTIONAL DYSPNEA AND TACHYPNEA CONTINUES. OCCASIONAL MOIST COUGH-CURRENTLY NOT PRODUCTIVE. LUNGS DIMINISHED T/O WITH SCATTERED EXPIRATORY WHEEZES TO THE LEFT. TEMP 100.0-GIVEN TYLENOL-SEE EMAR. ECG CONTINUES SR AND BP IS STABLE.PT ABLE TO TAKE MEDS AND TOLERATE FULL LIQUID DIET WITHOUT SIGNS OF ASPIRATION. PT STILL HAS NOT HAD A BM-SHE HAS BEEN ON BOWEL REGIME-SEE EMAR. MEJIA WITH MODERATE AMOUNT OF YELLOW URINE TO UROMETER-RENAL FUNCTION IMPROVING DAILY. BREEZY AREA WITH REDNESS AND YEAST-LIKE RASH NOTED WILL REQUEST ANTI FUNGAL POWDER. PT ASSISTED TO SUPINE POSITION/HIGH BLACKWOOD'S POSITION. ABLE TO FEED HERSELF BREAKFAST WITHOUT DIFFICULTY-CALL LIGHT WITHIN REACH.
--- NOTE | 2021-03-25 12:00 | NUR ---
PT AFEBRILE AND BP STABLE. PT COUGHED UP A MODERATE AMOUNT OF THICK, BROWN SPUTUM. DR. RUIZ AWARE-SPUTUM SPECIMEN SENT. PT TO START ON ANTIBIOTICS. FIO2 TITRATED UP TO 100% DURING LUNCH IN ORDER TO MAINTAIN SAT>90% AFTER LUNCH, PT POSITIONED TO COMFORT ON RIGHT SIDE-FIO2 TITRATED DOWN TO 90% CALL LIGHT PLACED WITHIN PT REACH.
--- NOTE | 2021-03-25 13:51 | NUR ---
ANTIBIOTIC INITIATED-SEE EMAR. ASSISTED PT WITH REPOSITIONING TO LEFT SIDE-FIO2 CONTINUES AT 90% TO KEEP SATS>90% 5
[2021-03-25 16:04] LABS: Albumin, Blood 2.3 g/dL (3.4-5.0); Albumin/Globulin Ratio 0.6 (0.8-1.8); Bilirubin, Direct 0.1 mg/dL (0.0-0.3); Bilirubin, Indirect 0.3 mg/dL (0.1-0.7); Bilirubin, Total 0.4 mg/dL (0.1-1.0); Globulin, Blood 4.1 g/dL (2.2-4.0); Total Protein, Blood 6.4 g/dL (6.4-8.2)
--- NOTE | 2021-03-25 17:45 | NUR ---
PT STATES THAT SHE IS FEELING "BETTER" THIS EVENING. SHE HAS BEEN VISITING WITH HER FOR MOST OF THE AFTERNOON. OCCASIONAL COUGH-PRODUCTIVE OF MODERATE AMOUNT OF THICK, BROWN, SPUTUM. PT MAINTAINS SATS>90% ON AIRVO 65L/90% MAINTAINS SATS WITH EXERTION. ANTIVIRAL INITIATED-SEE EMAR. DR. RUIZ IN TO SPEAK WITH PT AND HER SPOUSE. UPDATED TO CURRENT VS, STATUS, AND PLAN OF CARE.
--- NOTE | 2021-03-25 18:34 | NUR ---
PT REPORTS 6/10 "NOSE" PAIN. TYLENOL GIVEN-SEE EMAR. PT ALSO REPORTS SORE THROAT-CEPACOL GIVEN-SEE EMAR.
[2021-03-26 04:03] LABS: BASOPHILS ABSOLUTE AUTO 0.01 K/mm3 (0.00-0.23); BASOPHILS PERCENT AUTO 0 % (0-2); EOSINOPHILS ABSOLUTE AUTO 0.03 K/mm3 (0.00-0.68); EOSINOPHILS PERCENT AUTO 0 % (0-6); Hemoglobin 9.3 g/dL (11.5-16.0); IMMATURE GRAN ABSOLUTE AUTO 0.23 K/mm3 (0.00-0.10); IMMATURE GRAN PERCENT AUTO 3 % (0-1); LYMPHOCYTES ABSOLUTE AUTO 0.25 K/mm3 (0.84-5.20); LYMPHOCYTES PERCENT AUTO 3 % (21-46); MONOCYTES ABSOLUTE AUTO 0.39 K/mm3 (0.16-1.47); MONOCYTES PERCENT AUTO 4 % (4-13); Mean Corpuscular HGB 30.5 pg (26.0-34.0); Mean Corpuscular HGB Conc 33.2 g/dL (31.5-36.5); Mean Corpuscular Volume 92 fL (80-100); Mean Platelet Volume 12.1 fL (9.1-12.4); NEUTROPHILS ABSOLUTE AUTO 8.35 K/mm3 (1.96-9.15); NEUTROPHILS PERCENT AUTO 90 % (41-73); Platelet Count 116 K/mm3 (150-400); RDW Coefficient Variation 13.6 % (11.7-14.2); RDW Standard Deviation 42.8 fL (35.1-46.3); Red Blood Cell Count 3.05 M/mm3 (3.80-5.20); White Blood Cell Count 9.26 K/mm3 (4.00-11.30)
[2021-03-26 04:18] LABS: Albumin, Blood 2.2 g/dL (3.4-5.0); Albumin/Globulin Ratio 0.5 (0.8-1.8); Bilirubin, Direct 0.1 mg/dL (0.0-0.3); Bilirubin, Indirect 0.3 mg/dL (0.1-0.7); Bilirubin, Total 0.4 mg/dL (0.1-1.0); Bun/Creatinine Ratio 41.2 (12.0-20.0); Calcium, Blood 8.4 mg/dL (8.5-10.1); Creatinine, Blood 1.48 mg/dL (0.40-1.00); Globulin, Blood 4.1 g/dL (2.2-4.0); Phosphorus, Blood 3.1 mg/dL (2.5-4.9); Potassium, Blood 5.4 mmol/L (3.5-5.5); Total Protein, Blood 6.3 g/dL (6.4-8.2)
--- NOTE | 2021-03-26 05:39 | NUR ---
END OF SHIFT SUMMARY: PATIENT HAS REMAINED A/O X4 THE ENTIRE SHIFT. PATIENT HAS BEEN SB-NSR 55-70S, BP STABLE, AND HAS WORN BIPAP WHILE SLEEPING TONIGHT. DENIES PAIN BUT NOSE IS IRRITATED WHILE WEARING THE AIRVO SO PREFERS BIPAP WHILE ASLEEP. PATIENT HAS TURNED HERSELF AND LABS ARE ALL WNL. PATIENT CONTINUES TO USE CALL LIGHT WHEN NEEDING ASSISTACNE.
--- NOTE | 2021-03-26 07:42 | NUR ---
ASSUMED CARE RECEIVED REPORT FROM ARNULFO AVINA. PT IS SLEEPING IN BED ON HER LEFT SIDE, ON THE BIPAP @ /, 85%. SPO2 BETWEEN 93-96%, RATE NORMAL, 16-24 WHILE RESTING. SHE IS IN SINUS RHYTHM, RATE IN 60s. BP STABLE, MAP > 65. MEJIA IS PATENT DRAINING YELLOW URINE. AM LABS SHOW IMPROVING SERUM CREATININE, AND SHOWING A TACROLIMUS LEVEL OF 5.1 (ON 03/24) - THIS IS A BIG IMPROVEMENT FROM 16.3 (ON ). BED IS LOW AND LOCKED. CALL LIGHT WITHIN REACH. PT REPOSITIONING SELF [id number] IN BED WITH NO CURRENT ISSUES.
--- NOTE | 2021-03-26 08:33 | NUR ---
UPDATE-DELAYED PT IS FAST ASLEEP, WITH STABLE VITALS AND SPO2 AT 95-97%. IN A PREVIOUS SHIFT THE PT TOLD THIS RN SHE LIKES TO TAKE MOST OF HER MEDS AT 1000, AND SHE WILL EAT AROUND THEN TOO. SHORT DELAY IN STARTING HER MORNING TO ALLOW PT MORE SLEEP, AND TO ESTABLISH A MORE FAMILIAR ROUTINE. BED LOW AND LOCKED. CALL LIGHT WITHIN REACH.
--- NOTE | 2021-03-26 10:30 | NUR ---
UPDATE PT COMPLAINING OF COLD-BURNING SENSATION IN NOSE, PT ON AIRVO 60L, 100% AND WAS SWITCHED TO BIPAP, PT WAS NOT TOLERATING AIRVO ANYMORE AND WAS SWITCHED TO BIPAP 26/08, WITH 100% FIO2. DURING THIS TRANSITION PT HAD DE-SATTED TO 75-84% RANGE. PT HAS SLOWLY INCREASED SPO2 TO 80-86%. PT REMAINS ORIENTED X 4, BUT APPEARS TO BE FATIGUED. DR. MATTA AND VILMA FROM [facility] - AWARE.
[2021-03-26 11:07] LABS: PO2 Arterial 44.9 mmHg (80-100); pH Blood Arterial 7.41 (7.35-7.45)
--- NOTE | 2021-03-26 12:30 | NUR ---
UPDATE-INTUBATION DR. MATTA DISCUSSED WITH PT AND THEY DECIDED TO GO WITH INTUBATION - HER SPO2 WAS NOT IMPROVING AND SHE WAS BECOMING MORE FATIGUED. ETT WAS INSERTED AT 1119, 7.5 cm. PT STARTED ON PROPOFOL, PRECEDEX, LEVOPHED, AND HEPARIN. STRONG SUSPICIAN FOR PE. PLAN WAS TO DO V/Q SCAN AT 1315, BUT PT NOT STABLE. SPO2 75-85% DESPITE FIO2 100% AND INCREASING PEEP ON THE VENTILATOR. HYPERTENSIVE WHEN NOT ADEQUATELY SEDATED, THAN HYPOTENSIVE WHEN SEDATED. FINDING A BALANCE THAT WORKS FOR THE PT SO SHE IS RASS OF -1 TO -2, AND HAVING A STABLE MAP. FAMILY NOTIFIED, AT BEDSIDE. DR. MATTA AT BEDSIDE, DISCUSSING POSIBILITY FOR ADMINISTERING tPA WITH FAMILY, AND THE INABILLITY TO CONFIRM A PE WITH IMAGING DUE INSTABILITY OF PT. WILL CONTINUE TO MONITOR.
[2021-03-26 12:43] LABS: International Normalized Ratio 1.01; Prothrombin Time Results 10.9 Sec (9.7-11.5)
[2021-03-26 13:23] LABS: Albumin, Blood 2.3 g/dL (3.4-5.0); Albumin/Globulin Ratio 0.7 (0.8-1.8); Bilirubin, Total 0.5 mg/dL (0.1-1.0); Bun/Creatinine Ratio 39.3 (12.0-20.0); Calcium, Blood 8.4 mg/dL (8.5-10.1); Creatinine, Blood 1.45 mg/dL (0.40-1.00); Globulin, Blood 3.3 g/dL (2.2-4.0); Potassium, Blood 4.8 mmol/L (3.5-5.5); Total Protein, Blood 5.6 g/dL (6.4-8.2)
[2021-03-26 14:28] LABS: PCO2 Arterial 34.2 mmHg (35-45); PO2 Arterial 47.1 mmHg (80-100); pH Blood Arterial 7.36 (7.35-7.45)
[2021-03-26 14:28] LABS: BASOPHILS ABSOLUTE AUTO 0.05 K/mm3 (0.00-0.23); BASOPHILS PERCENT AUTO 0 % (0-2); EOSINOPHILS ABSOLUTE AUTO 0.03 K/mm3 (0.00-0.68); EOSINOPHILS PERCENT AUTO 0 % (0-6); Hematocrit 32.3 % (33.0-51.0); Hemoglobin 10.4 g/dL (11.5-16.0); IMMATURE GRAN ABSOLUTE AUTO 0.54 K/mm3 (0.00-0.10); IMMATURE GRAN PERCENT AUTO 2 % (0-1); LYMPHOCYTES ABSOLUTE AUTO 0.13 K/mm3 (0.84-5.20); LYMPHOCYTES PERCENT AUTO 1 % (21-46); MONOCYTES ABSOLUTE AUTO 0.86 K/mm3 (0.16-1.47); MONOCYTES PERCENT AUTO 4 % (4-13); Mean Corpuscular HGB 30.2 pg (26.0-34.0); Mean Corpuscular HGB Conc 32.2 g/dL (31.5-36.5); Mean Corpuscular Volume 94 fL (80-100); Mean Platelet Volume 11.8 fL (9.1-12.4); NEUTROPHILS PERCENT AUTO 94 % (41-73); Platelet Count 156 K/mm3 (150-400); RDW Coefficient Variation 14.1 % (11.7-14.2); RDW Standard Deviation 45.6 fL (35.1-46.3); Red Blood Cell Count 3.44 M/mm3 (3.80-5.20); White Blood Cell Count 24.41 K/mm3 (4.00-11.30)
[2021-03-26 14:45] LABS: Alanine Aminotransfer (ALT/SGP 14 U/L (12-78); Albumin, Blood 2.4 g/dL (3.4-5.0); Albumin/Globulin Ratio 0.5 (0.8-1.8); Alk Phos 86 U/L (50-136); Anion Gap 6 mmol/L (6-16); Aspartate Aminotrans (AST/SGOT 14 U/L (12-37); Bilirubin, Total 0.6 mg/dL (0.1-1.0); Blood Urea Nitrogen 60 mg/dL (8-24); Bun/Creatinine Ratio 36.6 (12.0-20.0); CO2, Blood 22 mmol/L (21-32); Calcium, Blood 8.8 mg/dL (8.5-10.1); Chloride, Blood 108 mmol/L (98-108); Creatinine, Blood 1.64 mg/dL (0.40-1.00); Globulin, Blood 4.4 g/dL (2.2-4.0); Glomerular Filtration Rate 33 (60-); Glucose, Blood 313 mg/dL (70-99); Potassium, Blood 5.8 mmol/L (3.5-5.5); Sodium, Blood 136 mmol/L (136-145); Total Protein, Blood 6.8 g/dL (6.4-8.2); Troponin I <0.015 ng/mL (0.000-0.040)
--- NOTE | 2021-03-26 16:30 | NUR ---
UPDATE- POST INTUBATION, HIGH PEEP, HYPOXIA PT SEDATED ON PROPOFOL 50 MCG/KG/MIN AND PRECEDEX 0.7 MCG/KG/HR, AND RECEIVING PRN FENTANYL PUSHES INTERMITTENTLY. LEVOPHED IS INFUSING AT 5 MCG/MIN, TO MAINTAIN A MAP > 65. PT HAS 7.5 ETT. 23 AT LIP - VENT SETTINGS NOW AT AC 24/350/18/100% (BUT RESP THERAPY HAS BEEN SWITCHING TO AC PC MODES TO COMBAT HIGH PEAK PRESSURES - SO SEE RT NOTE). SPO2 HAS RECENTLY BECOME STABILIZED AT 88-93% ON THESE SETTINGS, AFTER HOURS OF SPO2 IN THE 70-80s (AND MID-80s MORE RECENTLY - SEE VITALS). SINCE tPA FINISHED INFUSING ~[id number], HEPARIN WAS RESTARTED AT 1500 AT 15 UNITS/KG/HR, ARNULFO TOVAR TO VERIFY DOSING. NO OVERT SIGNS OF BLEEDING (NO BLOOD NOTED IN TRACHEAL AND ORAL SECRETIONS, OR IN MEJIA, OR FROM CVC INSERTION SITE). WILL CONTINUE TO MONITOR. tPA INFUSED - SPO2 SEEMED TO IMPROVE SLOWLY DURING THIS PERIOD OF TIME. OG TUBE PLACEMENT WAS CONFIRMED BY DR. MATTA, AND WAS HOOKED UP TO LIS, HAVING IMMEDIATE OUTPUT (BROWN, CLEAR). CODE STATUS WAS DISCUSSED IN GREAT DETAIL WITH FAMILY, MIS CHAVEZ FROM [facility] BROUGHT THE FAMILY TO A CONFERENCE ROOM TO DISCUSS CURRENT ILLNESS, CODE STATUS, AND WHAT TO KNOW MOVING FORWARD. FAMILY DECIDED TO CONTINUE CARE, BUT TO MAKE PT A DNR. , AND SON, AND A FEW OTHER FAMILY MEMBERS AT BEDSIDE AND HAVE BEEN UPDATED AND ARE AWARE OF SERIOUSNESS OF PT's CONDITION.
--- NOTE | 2021-03-26 18:48 | NUR ---
pt intubated called to ICU for family suuport. Multiple discussions with family regaring plan of care. having antipatory giref. offered chaplian they declined. struggling with plan of care. He was wanting guidance in what to do. Spoek with him about her journey through her health and that I doctor Jacy contacted doner margarette quintero contacted team wthn she arived. Review potential suffering. Afer many questions and giving them time to process. Spent tsome time at bedside doing theraputic tough with pt and talking to her suggested they do the same. The were bargaining and sking her to stay and expressing love. They called for family meeting this afternoon. and agreed on DNR. Encouraged them to continue treatment and discussed gently if she worsens or is suffering to have a discussion. Son met with me separately in the caffeteria and asked when they sould look at comfort. Advised is her vitalor labs show decling or anothe event they will want to discuss comfort care. Pt eldest sone understand she may not survivie and will not be the same and is trying to prepare his father. pt pps score is 10%
--- NOTE | 2021-03-26 19:00 | NUR ---
UPDATE - END OF SHIFT PT WAS NOTED TO HAVE INCREASED SWELLING IN NECK REGION, AND CREPITUS WAS PALPATED AROUND HER NECK, HER UPPER CHEST, AND INNER SHOULDERS. AT 1800 A CHEST XRAY WAS ORDERED BY DR. MATTA. VENTILATOR SETTINGS WERE CHANGED (SEE RT NOTE FOR DETAILED NOTES REGARDING VENTILATOR SETTINGS PT IS ON PRESSURE CONTROL) PEEP WAS DROPPED TO 5 AND THE PT MAINTAINED SPO2 91-94%, AND DOING WELL RESPIRATORY SAPP. FIO2 DOWN TO 80%. BLOOD GAS WILL BE DRAWN ~ 1999. CURRENT GTTPs: PROPOFOL 55 MCG/KG/MIN, PRECEDEX 0.7, HEPARIN 15 UNITS/KG/HR, AND LEVOPHED IS ON STANDBY. REMDESIVIR WAS GIVEN THIS EVENING. ALL GTTPs ARE INFUSING THROUGH QUAD-LUMEN CVC IN RIGHT FEM VEIN (INSERTED BY DR. MATTA AT 1300, AND PLACEMENT CONFIRMED BY DR. MATTA). CURRENT CPOT OF 0; RASS OF -2; VSS - MAP > 65, SLIGHTLY HYPERTENSIVE, SPO2 90-94%, AFEBRILE, RR 24-32, AND SINUS RHYTHM RATE 80-90s. RESTRAINTS SECURED TO PT AND BED (SWB). PT IS OLIGURIC (50ML SINCE ~1200), BUT MEJIA IS PATENT DRAINING YELLOW URINE. PT IS WARM TO TOUCH, CAP REFIL < 3s X 4 EXTREMITIES, SWELLING NOTED IN HER HANDS (TRACE). SHE IS SLIGHTLY PALE IN HER FACE AND LIPS. BED LOW AND LOCKED. FAMILY HAS GONE HOME FOR THE NIGHT.
[2021-03-26 20:06] LABS: PO2 Arterial 83.7 mmHg (80-100); pH Blood Arterial 7.39 (7.35-7.45)
[2021-03-27 04:17] LABS: BASOPHILS ABSOLUTE AUTO 0.01 K/mm3 (0.00-0.23); BASOPHILS PERCENT AUTO 0 % (0-2); EOSINOPHILS ABSOLUTE AUTO 0.03 K/mm3 (0.00-0.68); EOSINOPHILS PERCENT AUTO 0 % (0-6); Hematocrit 27.3 % (33.0-51.0); Hemoglobin 9.2 g/dL (11.5-16.0); IMMATURE GRAN ABSOLUTE AUTO 0.28 K/mm3 (0.00-0.10); IMMATURE GRAN PERCENT AUTO 2 % (0-1); LYMPHOCYTES ABSOLUTE AUTO 0.19 K/mm3 (0.84-5.20); LYMPHOCYTES PERCENT AUTO 2 % (21-46); MONOCYTES ABSOLUTE AUTO 0.39 K/mm3 (0.16-1.47); MONOCYTES PERCENT AUTO 3 % (4-13); Mean Corpuscular HGB 30.7 pg (26.0-34.0); Mean Corpuscular HGB Conc 33.7 g/dL (31.5-36.5); Mean Corpuscular Volume 91 fL (80-100); Mean Platelet Volume 12.7 fL (9.1-12.4); NEUTROPHILS ABSOLUTE AUTO 11.14 K/mm3 (1.96-9.15); NEUTROPHILS PERCENT AUTO 93 % (41-73); Platelet Count 108 K/mm3 (150-400); RDW Coefficient Variation 13.6 % (11.7-14.2); RDW Standard Deviation 43.8 fL (35.1-46.3); White Blood Cell Count 12.04 K/mm3 (4.00-11.30)
[2021-03-27 04:40] LABS: Albumin, Blood 2.1 g/dL (3.4-5.0); Albumin/Globulin Ratio 0.5 (0.8-1.8); Bilirubin, Total 0.4 mg/dL (0.1-1.0); Bun/Creatinine Ratio 34.1 (12.0-20.0); Calcium, Blood 8.5 mg/dL (8.5-10.1); Creatinine, Blood 1.82 mg/dL (0.40-1.00); Globulin, Blood 4.1 g/dL (2.2-4.0); Potassium, Blood 5.6 mmol/L (3.5-5.5); Total Protein, Blood 6.2 g/dL (6.4-8.2)
[2021-03-27 05:17] LABS: PCO2 Arterial 31.7 mmHg (35-45); PO2 Arterial 63.4 mmHg (80-100); pH Blood Arterial 7.42 (7.35-7.45)
--- NOTE | 2021-03-27 05:35 | NUR ---
END OF SHIFT SUMMARY: PATIENT SEDATED AND LOOKS COMFORTABLE ON CURRENT VENT SETTINGS. PATIENT REMAINS AT 75 FI02 AND 5 PEEP AND WE HAVE NOT BEEN ABLE TO DECREASE FIO2 MUCH FURTHER D/T 90% SAT WHEN TURNING PATIENT. LEVOPHED HAS REMAINED OFF OVERNIGHT. PATIENT REMAINS IN NSR WITH A STABLE BP. CRITICAL K OF 6.1 WELL A RECHECK OF 5.[address] MATTA NOTIFIED AND EKG OBTAINED WITH NO OTHER TREATMENT AT THIS TIME. NO ECTOPY ON MONITOR OVERNIGHT.
--- NOTE | 2021-03-27 08:15 | NUR ---
ASSUMED CARE RECEIVED REPORT FROM ARNULFO AVINA. PT IS IN BED, SEDATED WITH PROPOFOL AT 40 MCG/KG/MIN, AND PRECEDEX 0.5 MCG/KG/HR. SHE IS INTUBATED ON VENTILATOR WITH SETTINGS OF AC-PC 15/5, 75% FIO2 WITH SET RR OF 20. SPO2 90-92%, WITH RATE OF 20 (RIDING VENT). VSS, MAP > 65. SINUS RHYTHM, RATE 70s. HEPARIN IS ALSO INFUSING AT 16 UNITS/KG/HR, WITH DOSING WEIGHT OF 65 KG, AND RATE OF 20.8 ML/HR. NS TKO. MEJIA IS PATENT DRAINING CLEAR-YELLOW URINE. BED LOW AND LOCKED. SWB RESTRAINTS SECURED TO PT AND BED.
--- NOTE | 2021-03-27 11:45 | NUR ---
UPDATE 1 1200 NEURO 1130 - PT AWAKEN, FOLLOWING COMMANDS (SQUEEZING FINGERS, AND LETTING GO), OPENING EYES ON COMMAND, NODDING HEAD TO HEARING HER NAME, AND SHAKING HEAD "NO" TO THE QUESTION "ARE YOU IN PAIN?". PT WAS NOT ABLE TO STAY FOCUSED ON OUR WORDS FOR LONG - WAS NOT ABLE TO WIGGLE TOES OR NOD TO ANY OTHER QUESTIONS, AND FELL BACK ASLEEP/IN SEDATION. VSS. BED LOW AND LOCKED. CONTINUING TO MONITOR.
--- NOTE | 2021-03-27 14:30 | NUR ---
UPDATE 2 - AGITATION/RESPIRATORY PT BECAME INCREASINGLY AGITATED AFTER HAVING HER ETT SUCTIONED BY RESP THERAPY. AROUND 1200 AND AFTER - SHE STARTED TO RAMP UP MORE AND MORE, SHE WAS PULLING ON RESTRAINTS, THRASHING AROUND IN BED, AND FIGHTING THE VENTILATOR AND CONSEQUENTLY WAS COMPLETELY DYSYNCHRONOUS WITH THE VENT AND CAUSING HER TO DE-SAT INTO THE 50-60s INITIALLY, THEN REMAINED STEADY IN THE 70s. HR INCREASED TO 140s, BP STABLE. SHE WAS GIVEN FENTANYL AND ATIVAN PUSHES, AND PROPOFOL AND PRECEDEX WERE INCREASED (UP TO 80 MCG/KG/MIN, AND 1.4 MCG/KG/HR, RESPECTIVELY). THIS WAS APPROVED BY DR. MATTA. PT BECAME MORE CALM, AND STOPPED PULLING ON THE RESTRAINTS, BUT SHE CONTINUED TO FIGHT THE VENTILATOR. SPO2 75-86% DURING THIS TIME. 20 MG OF ROCURONIUM GIVEN A PUSH, FOLLOWED BY A NIMBEX GTTP (STARTED AT 2 MCG/KG/MIN, BASELINE ToF 4/4). PT DID BECOME MORE SYNCHRONOUS WITH THE VENTILATOR AND THUS IMPROVING HER STATUS. CURRENTLY: SPO2 86-92%. HR 120-135, BP STABLE, PROPOFOL: 60 MCG/KG/MIN, NIMBEX: 1.5 MCG/KG/MIN (ToF REMAINS 4/4), PRECEDEX 1.4 MCG/KG/HR, LEVOPHED SB, HEPARIN 16 UNITS/KG/HR). PT RIDING THE VENT, RR 20. WILL CONTINUE TO MONITOR.
--- NOTE | 2021-03-27 17:11 | NUR ---
UPDATE- END OF SHIFT CURRENT GTTPs: PROPOFOL 60 MCG/KG/MIN, PRECEDEX 1.4 MCG/KG/HR, HEPARIN 17 UNITS/KG/HR, NIMBEX 1.5 MCG/KG/MIN. VENT SETTINGS: AC 20/400/12/100%. VSS, MAP > 65, SPO2 88-92%, SINUS TACH 110-120, AFEBRILE, RR 20 (RIDING VENTILATOR). PIVOT 1.5 TF STARTED TODAY AT 25 ML/HR THROUGH OG TUBE WITH Q4H 40mL WATER FLUSHES. ToF 4/4, BIS ~35-45. NO MAJOR CHANGES FROM LAST UPDATE, PT HAS BEEN STABLE SINCE. HR TRENDING DOWN. PT VERY SENSITIVE TO LEVOPHED, BECOMING HYPERTENSIVE EVEN AT LOW DOSES. W/OUT LEVOPHED PT IS BOARDERLINE LOW. , SON, AND DAUGHTER HAVE BEEN UPDATED TO PLAN OF CARE AND PTs CONDITION. QUESTIONS ANSWERED. BED LOW AND LOCKED. RESTRAINTS OFF SINCE ON PARALYTICS.
[2021-03-28 05:17] LABS: pH Blood Arterial 7.35 (7.35-7.45)
[2021-03-28 05:18] LABS: PCO2 Arterial 36.7 mmHg (35-45)
[2021-03-28 06:45] LABS: BASOPHILS ABSOLUTE AUTO 0.03 K/mm3 (0.00-0.23); BASOPHILS PERCENT AUTO 0 % (0-2); EOSINOPHILS ABSOLUTE AUTO 0.16 K/mm3 (0.00-0.68); EOSINOPHILS PERCENT AUTO 1 % (0-6); Hemoglobin 8.8 g/dL (11.5-16.0); IMMATURE GRAN ABSOLUTE AUTO 0.45 K/mm3 (0.00-0.10); IMMATURE GRAN PERCENT AUTO 3 % (0-1); LYMPHOCYTES PERCENT AUTO 1 % (21-46); MONOCYTES ABSOLUTE AUTO 0.43 K/mm3 (0.16-1.47); MONOCYTES PERCENT AUTO 2 % (4-13); Mean Corpuscular HGB Conc 32.6 g/dL (31.5-36.5); Mean Corpuscular Volume 95 fL (80-100); Mean Platelet Volume 12.8 fL (9.1-12.4); NEUTROPHILS ABSOLUTE AUTO 16.66 K/mm3 (1.96-9.15); NEUTROPHILS PERCENT AUTO 93 % (41-73); Platelet Count 104 K/mm3 (150-400); RDW Coefficient Variation 14.6 % (11.7-14.2); RDW Standard Deviation 47.7 fL (35.1-46.3); Red Blood Cell Count 2.84 M/mm3 (3.80-5.20); White Blood Cell Count 17.83 K/mm3 (4.00-11.30)
[2021-03-28 07:05] LABS: Creatinine, Blood 1.44 mg/dL (0.40-1.00); Magnesium, Blood 2.2 mg/dL (1.6-2.4); Phosphorus, Blood 3.7 mg/dL (2.5-4.9); Potassium, Blood 5.4 mmol/L (3.5-5.5)
--- NOTE | 2021-03-28 07:19 | NUR ---
END OF SHIFT SUMMARY: PATIENT COMFORRTABLE ON CURRENT VENT SETTINGS: 400 100% 20RR PEEP 12. PATIENT TOLERATED DRIPS OVERNIGHT. REMAINS ON PROPOFOL AT 60 PRECEDEX 1.4 NIMBEX 1.5 HEPARTIN 18. MINOR DESAT WHEN TURNING PATIENT THIS MORRNING FOR A BATH. LOWEST WAS 85% BUT RECOVERED RELATIVELY QUICK ONCE SUPINE. SATS ANYWHERE BETWEEN 89-95% ON CURRENT SEETINGS. CENTRAL LINE CONTINUES TO OOZE BLOOD. NO DRESSING CHANGE OVERNIGHT BUT DRESSING REINFORCED. BLOOD GLUCOSE CONTUNUES TO SLOWLY RISE BUT GOT APPROPTIATE COVERAGE OVERNIGHT
--- NOTE | 2021-03-28 08:11 | NUR ---
ASSUMED CARE RECEIVED REPORT FROM ARNULFO AVINA. PT ON VENTILATOR, SETTINGS: AC 20/400/12/100%, WITH CURRENT GTTPs: NIMBEX 1.5 MCG/KG/MIN, PROPOFOL 60 MCG/KG/MIN, PRECEDEX 1.4 MCG/KG/HR, HEPARIN 18 UNITS/KG/HR (TITRATED UP TO 19 UNITS/KG/HR THIS AM, VERIFIED BY ARNULFO GLASER). PT IS CURRENTLY STABLE, SYNCHRONOUS WITH VENTILATOR, RR 20 - SPO2 92-94%, SINUS RHYTHM WITH RATE IN 90s, MAP > 65 (LEVO ON STANDBY). AFEBRILE. ToF 4/4. MEJIA PATENT - DRAINING YELLOW/CLEAR URINE. BED LOW AND LOCKED.
--- NOTE | 2021-03-28 11:15 | NUR ---
UPDATE PT RECEIVED 1 MG OF IV DILAUDID FOR 9/10 PAIN, AND PT FELL ASLEEP SHORTLY AFTER. SHE HAS MAINTAINED A RR OF 10-20 DEPENDING ON IF WOKEN UP. WHILE ASLEEP PT OCCASSIONALLY DE-SATs INTO THE 86-90% RANGE, 2L NC PLACED ON PT AND SHE RECOVERED QUICKLY, SPO2 94%+. PT HAS BEEN OFF PRECEDEX GTTP. VSS. BED LOW AND LOCKED. CALL LIGHT WITHIN REACH.
--- NOTE | 2021-03-28 16:17 | NUR ---
UPDATE NIMBEX TURNED OFF AT 1400. PT CONTINUES TO TOLERATE THE VENTILATOR WELL, RR 22, SPO2 92-96%. SINUS RHYTHM, RATE 80s. VSS. AT BEDSIDE. PROPOFOL AND PRECEDEX REMAIN UNCHANGED. CPOT OF 0. RASS -2. BED LOW AND LOCKED.
--- NOTE | 2021-03-28 19:30 | NUR ---
PATIENT REMAINS INTUBATED AND SEDATED WITH PRECEDEX 1.4 MCG, AND PROPOFOL 60 MCG. SLIGHT GRIMACE WITH ORAL CARE AND REPOSITIONING. ETT IN PLACE AC 20, TV 400, PEEP 12, FIO2 TITRATED TO 90% BY RT. OG IN PLACE AND CLAMPED, TUBE FEEDING REMAINS OFF DUE TO CONTINUED HIGH RESIDUAL OF 360 CC, REFED.
--- NOTE | 2021-03-28 19:46 | NUR ---
END OF SHIFT NO MAJOR CHANGES. INCREASED RESIDUALS, TF REMAINS ON PAUSE. NO BM TODAY (COLACE, SENNA, AND MIRALAX GIVEN, AND MoM GIVEN LATE LAST NIGHT). VSS, SPO2 96% - NO CHANGE TO VENT SETTINGS, PT REMAINS SYNCHRONOUS WITH VENT. CURRENT GTTPs: PRECEDEX 1.4 MCG/KG/HR, PROPOFOL 60 MCG/KG/MIN, HEPARIN 19 UNITS/KG/HR, AND NS TKO. PT HAVING ADEQUATE YELLOW URINE OUTPUT (NO MORE PINK). UPDATED ON PLAN OF CARE, QUESTIONS ANSWERED. BED LOW AND LOCKED. REPORTED OFF TO ARNULFO GONSALEZ.
--- NOTE | 2021-03-29 00:45 | NUR ---
AFTER BED BATH SUCTIONING SMALL AMT OF BILE FROM MOUTH. OG REMAINS CLAMPED.
[2021-03-29 05:32] LABS: BASOPHILS ABSOLUTE AUTO 0.02 K/mm3 (0.00-0.23); BASOPHILS PERCENT AUTO 0 % (0-2); EOSINOPHILS ABSOLUTE AUTO 0.04 K/mm3 (0.00-0.68); EOSINOPHILS PERCENT AUTO 0 % (0-6); Hematocrit 25.5 % (33.0-51.0); Hemoglobin 8.3 g/dL (11.5-16.0); IMMATURE GRAN ABSOLUTE AUTO 0.31 K/mm3 (0.00-0.10); IMMATURE GRAN PERCENT AUTO 2 % (0-1); LYMPHOCYTES ABSOLUTE AUTO 0.12 K/mm3 (0.84-5.20); LYMPHOCYTES PERCENT AUTO 1 % (21-46); MONOCYTES ABSOLUTE AUTO 0.33 K/mm3 (0.16-1.47); MONOCYTES PERCENT AUTO 3 % (4-13); Mean Corpuscular HGB Conc 32.5 g/dL (31.5-36.5); Mean Corpuscular Volume 95 fL (80-100); NEUTROPHILS ABSOLUTE AUTO 11.97 K/mm3 (1.96-9.15); NEUTROPHILS PERCENT AUTO 94 % (41-73); Platelet Count 79 K/mm3 (150-400); RDW Coefficient Variation 14.6 % (11.7-14.2); RDW Standard Deviation 48.3 fL (35.1-46.3); Red Blood Cell Count 2.68 M/mm3 (3.80-5.20); White Blood Cell Count 12.79 K/mm3 (4.00-11.30)
[2021-03-29 05:32] LABS: PCO2 Arterial 33.7 mmHg (35-45); PO2 Arterial 50.5 mmHg (80-100); pH Blood Arterial 7.39 (7.35-7.45)
[2021-03-29 05:55] LABS: Albumin, Blood 1.7 g/dL (3.4-5.0); Albumin/Globulin Ratio 0.4 (0.8-1.8); Bilirubin, Total 0.5 mg/dL (0.1-1.0); Bun/Creatinine Ratio 34.9 (12.0-20.0); Calcium, Blood 8.5 mg/dL (8.5-10.1); Creatinine, Blood 1.26 mg/dL (0.40-1.00); Globulin, Blood 4.3 g/dL (2.2-4.0); Magnesium, Blood 2.4 mg/dL (1.6-2.4); Phosphorus, Blood 3.4 mg/dL (2.5-4.9); Potassium, Blood 4.6 mmol/L (3.5-5.5)
--- NOTE | 2021-03-29 06:44 | NUR ---
PATIENT REMAINS INTUBATED AND SEDATED. AFTER CXR AND REPOSITIONING TO HER RIGHT SIDE AT 0400 BIOX DOWN TO 85-86% SCANT AMT OF WHITE SPUTUM VIA ETT. RT CALLED AT 0500 WHEN BIOX CONTINUING TO BE 86-87% SMALL AMT OF CREPITUS FELT TO HER RIGHT SHOULDER WHEN RT INCREASED PEEP. NOW THAT PEEP IS BACK TO 12 NO LONGER FEEL CREPITUS. LABS AND ABG OBTAINED AND DOCTOR SIGRID CALLED AND NOTIFIED OF DIFFICULTY WITH BIOX, NO CHANGES AT THIS TIME. VENT SET AT AC 20, TV 400, PEEP 12, FIO2 100%. OG PLACED TO LIS DUE TO CONTINUED HIGH RESIDUALS, 500 CC BROWN BILE OBTAINED, OG CONTINUES TO LIS. PRECEDEX TITRATED BACK TO 1.4 MCG AND PROPOFOL 70 MCG. BIOX NOW 89-90%
--- NOTE | 2021-03-29 09:12 | NUR ---
CARE OF PT ASSUMED AT 0700. PT SEDATED ON PROPOFOL AT 70MCG AND PRECEDEX AT 1.4MCG FOR MECH VENT. PT'S SATS 84-88% ON ASSESMENT W VENT FI02 AT 100%. LUNGS CLEAR T/O, VERY DIMINISHED TO BASES. PT TURNED TO R SIDE, SATS IMPROVED TO 88-90%. PROPOFOL DECREASED TO 60MCG. PT PUT OUT AN ADDITIONAL 160CC FROM OGT. MEDS PLACED AND CLAMPED. PT W SM SMEAR THIS AM; SUPP. PLACED. RECTAL TEMP PROBE PLACED; READS 99.0. PT GRIMACES W ORAL CARE; DOES NOT WAKE UP TO VOICE OR PAIN. WILL NOT PLACE ON SED VAC UNTIL SATS MORE STABLE SPO2 WAS LOW 84%THIS AM.
--- NOTE | 2021-03-29 12:12 | NUR ---
TV TO 330, PEEP INCREASED TO [address] GALVIN. SATS REMAIN 88-90%. L SIDE VERY DIMINISHED, MORE DIMINISHED THAN THIS AM. REGLAN STARTED. LONG ACTING INSULIN INCREASED. NO OTHER CHANGES.
--- NOTE | 2021-03-29 15:01 | NUR ---
CENTRAL LINE DRSG CHANGED. SMALL LEAK FOUND IN HEPARIN GTT TUBING. TUBING CHANGED, PHARMACY NOTIFIED. PTT TO BE REPEATED AT 1999. PT'S AT BEDSIDE, PT'S UPDATED.
--- NOTE | 2021-03-29 16:34 | NUR ---
OGT HAD BEEN CLAMPED SINCE THIS AM. 300CC RESIDUAL PULLED AT 1600 AND DISGARDED. REGLAN TO BE GIVEN AGAIN. OG PLACED TO LIS. NO OTHER CHANGES.
--- NOTE | 2021-03-29 18:31 | NUR ---
AC20/TV330/PEEP14/FIO2 100%. SATS BETWEEN 87-90%. SATS OCCASIONALLY DROPPED TO 82% WITH TURNS, PT RECOVERED SATS UP TO 87-90% WITHIN 5MIN OF TURN. SCANT CLEAR SECRETIONS. PROPOFOL AT 60MCG, PRECEDEX AT 1.4MCG, HEPARIN AT 19UNITS. PT TMAX 99.0. PT MILDLY HYPERTENSIVE TODAY, SINUS RHTHYM RATE 70-90. HIGH RESIDUALS CONTINUED. OGT TO LIS NOW, REGLAN GIVEN TWICE. BT'S ABSENT. SMEAR ONLY; MOM, SUPP, COLACE GIVEN. PT GRIMACES W CARE, DOES NOT FOLLOW DIRECTIONS. UNABLE TO TURN SEDATION DOWN TO RESP INSTABILITY.
--- NOTE | 2021-03-29 19:09 | NUR ---
PT SOMEWHAT ASYNCHRONIS W VENT, SATS DOWN TO 85%. FENTANYL 50MCG GIVEN ADJUNCT TO SEDATION. PT MAY REQUIRE NIMBEX AGAIN. REPORT GIVEN TO SUNSHINE ARREDONDO.
--- NOTE | 2021-03-29 20:17 | NUR ---
PATIENT INTUBATED AND SEDATED, VENT SET AC 20, TV 330, PEEP 14, FIO2 100% PATIENT BREATHING AGAINST VENT, HAVING A LONG FORCED BREATH OUT AT TIMES. BIOX 86-90% FENTANYL GIVEN DURING SHIFT REPORT WITH A LITTLE EFFECT. PROPOFOL INCREASED TO 70 MCG PRECEDEX CONTINUES 1.4 MCG. GRIMACING WITH ORAL CARE AND REPOSITIONING, NO MOVEMENT SEEN IN EXTREMITIES. SCLERAL EDEMA. HEPARIN DRIP CONTINUES 19 UNITS/KG PER PHARMACY. OG REMAINS CLAMPED DUE TO ELEVATED RESIDUALS T/O DAY. ABD SOFT FAINT HYPOACTIVE BOWEL TONES.
--- NOTE | 2021-03-29 23:23 | NUR ---
DOCTOR GALVIN NOTIFIED OF PATIENT CONTINUED DESAT WITH SLIGHT STIMULI OR SLIGHT DISRUPTION IN SEDATION. WITH BIOX DOWN TO 83% WITH LONG RECOVERY TIME. VENT REMAINS AC 20, TV 330, PEEP 14, FIO2 100% NOT INCREASING PEEP DUE TO RETURN OF CREPITUS WITH HIGH PEEP. PLAN TO MINIMIZE REPOSITIONING IF POSSIBLE. OG REMAINS CLAMPED. PLAN TO START FENTANYL [employer]ER[employer] LOAN COORDINATOR AT 100 MCG/HR.
[2021-03-30 03:15] LABS: BASOPHILS ABSOLUTE AUTO 0.03 K/mm3 (0.00-0.23); BASOPHILS PERCENT AUTO 0 % (0-2); EOSINOPHILS ABSOLUTE AUTO 0.22 K/mm3 (0.00-0.68); EOSINOPHILS PERCENT AUTO 1 % (0-6); Hematocrit 25.5 % (33.0-51.0); Hemoglobin 8.3 g/dL (11.5-16.0); IMMATURE GRAN ABSOLUTE AUTO 0.52 K/mm3 (0.00-0.10); IMMATURE GRAN PERCENT AUTO 3 % (0-1); LYMPHOCYTES ABSOLUTE AUTO 0.23 K/mm3 (0.84-5.20); LYMPHOCYTES PERCENT AUTO 1 % (21-46); MONOCYTES ABSOLUTE AUTO 0.33 K/mm3 (0.16-1.47); MONOCYTES PERCENT AUTO 2 % (4-13); Mean Corpuscular HGB 31.3 pg (26.0-34.0); Mean Corpuscular HGB Conc 32.5 g/dL (31.5-36.5); Mean Corpuscular Volume 96 fL (80-100); NEUTROPHILS ABSOLUTE AUTO 19.01 K/mm3 (1.96-9.15); NEUTROPHILS PERCENT AUTO 94 % (41-73); NRBC ABSOLUTE 0.02 K/mm3 (0.00-0.02); NRBC Auto 0.1 /100 WBC (0.0-0.2); Platelet Count 93 K/mm3 (150-400); RDW Standard Deviation 50.5 fL (35.1-46.3); Red Blood Cell Count 2.65 M/mm3 (3.80-5.20); White Blood Cell Count 20.34 K/mm3 (4.00-11.30)
[2021-03-30 03:17] LABS: Mean Platelet Volume 13.1 fL (9.1-12.4)
[2021-03-30 03:28] LABS: Bun/Creatinine Ratio 31.1 (12.0-20.0); Calcium, Blood 7.9 mg/dL (8.5-10.1); Creatinine, Blood 1.32 mg/dL (0.40-1.00); Magnesium, Blood 2.1 mg/dL (1.6-2.4); Phosphorus, Blood 4.2 mg/dL (2.5-4.9); Potassium, Blood 4.5 mmol/L (3.5-5.5)
--- NOTE | 2021-03-30 03:39 | NUR ---
UPDATE CALLED DR. GALVIN TO UPDATE ON PT'S CONDITION, SATS 80-82% AFTER ADDITION OF FENTANYL GTT AND RESTARTING LEVOPHED. NOTIFIED ABOUT INCREASE IN WBC AND NO CXR ORDERED FOR MORNING. PER DR. GALVIN, RESTART NIMBEX TO PARALYZE PT.
--- NOTE | 2021-03-30 06:13 | NUR ---
SHIFT SUMMARY PT INTUBATED AND SEDATED. PROPOFOL INFUSING AT 70 MCG, PRECEDEX AT 1.4 MCG. HEPARIN CURRENTLY INFUSING AT 21 UNITS. LEVOPHED ADDED THIS SHIFT TO MAINTAIN MAP ABOVE 65, CURRENTLY INFUSING AT 7 MCG. NIMBEX RESTARTED THIS SHIFT, INFUSING AT 2 MCG; BIZ MONITOR READING 28-30 AND TOF 0/4 PRIOR TO NIMBEX STARTING. RESTRAINTS WERE REMOVED AT 0400. FAMILY WAS NOTIFIED AT 0510 OF PT'S DECLINE IN CONDITION, CURRENTLY AT PT'S BEDSIDE AWAITING ANOTHER SON TO ARRIVE. DR. GALVIN NOTIFIED AT 0505 BY BRIA, LINE RIDER REGARDING PT'S CONDITION. FAMILY AT BEDSIDE EXPRESSING FRUSTRATION AT DECLINE IN CONDITION, QUESTIONING WHY PEEP WASN'T INCREASED TO HELP WITH DECREASING 02 SATS, ALSO AWARE THAT BP IS REQUIRING MORE MEDICATION. FENTANYL CAR TESTER WAS ADDED THIS SHIFT AT 100 MCG/HR CONTINUOUS.
--- NOTE | 2021-03-30 07:21 | NUR ---
CARE ASSUMED OF PT AT 0700. PT SEDATED AND PARALYZED ON [facility] VENT SATS IN MID TO HIGH 70'S W FIO2 AT 100%. PEEP AT 14. BIS 30'S. PT'S , TWO SONS, AND DAUGHTER AT BEDSIDE. OPTIONS REVIEWED INCLUDING CONT FULL CARE W POSSIBLE PRONING VS COMFORT CARE. FAMILY DISCUSSING OPTIONS. PASTORAL CARE CALLED. PROPOFOL AT 70MCG, PRECEDEX AT 1.4MCG, NIMBEX AT 2MCG (PT SUFFICIANTLY PARALYZED), LEVOPHED AT 12MCG, FENT GTT AT 100MCG/HR, HEPARIN GTT AT 19UNITS.
--- NOTE | 2021-03-30 07:39 | NUR ---
DR GALVIN CALLED AND UPDATED. LEVOPHED INCREASED TO 16MCG FOR MAP 50'S. FAMILY CONTEMPLATING WAITING FOR LAST SON WHOM IS COMING FROM [place] BEFORE POSSIBLY PLACING PT ON COMFORT CARE. PASTORAL CARE TO BE AT BEDSIDE SOON.
--- NOTE | 2021-03-30 08:06 | NUR ---
FAMILY HAS DECIDED TO MAKE PT COMFORT CARE. DR GALVIN NOTIFIED. NIMBEX GTT TURNED OFF. WILL EXTUBATE PT WHEN FAMILY IS READY. RT NOTIIFED.
--- NOTE | 2021-03-30 09:00 | NUR ---
Spiritual care visit attempted. After being contacted by ARNULFO Bedolla with a spiritual care request twice once for spiritual care and once for assistance with selecting a home, I visit [id number]. Family declines [facility] services for spiritual care and then selects [facility] from the parking lot of the hospital and calls in with the home information. I will continue to remain available
--- NOTE | 2021-03-30 09:29 | NUR ---
PT EXTUBATED AT 0826 PER FAMILY REQUEST, SATS IMMEDIATELY DROPPED INTO 40'S AND THEN UNREADABLE. TIME OF 08. PASTORAL CARE OFFERED BUT DECLINED. POST MORTEM CARE PROVIDED. DR GALVIN AND NURSING POURED CONCRETE WALL TECHNICIAN NOTIFIED. PT TO GO TO [facility] PER HUSBANDS REQUEST.
== END 2021-03-30 10:12 | DRG 208 ==
LOC: ER 12:11 → PCU 14:54 → ICUW 14:54
PROVIDERS: Emergency Medicine; Internal Medicine; Internal Medicine Critical Care Medicine; Internal Medicine Pulmonary Disease; Nurse Practitioner Acute Care; Pharmacist; ADMIT Internal Medicine
PROC: 3E0D73Z Introduction of Anti-inflammatory into Mouth and Pharynx, Via Natural or Artificial Opening (ICD-10-PCS; 2021-03-18)
PROC: 5A09457 Assistance with Respiratory Ventilation, 24-96 Consecutive Hours, Continuous Positive Airway Pressure (ICD-10-PCS; 2021-03-21)
PROC: XW033E5 Introduction of Remdesivir Anti-infective into Peripheral Vein, Percutaneous Approach, New Technology Group 5 (ICD-10-PCS; principal; 2021-03-25)
PROC: 5A1945Z Respiratory Ventilation, 24-96 Consecutive Hours (ICD-10-PCS; 2021-03-26)
PROC: 0BH18EZ Insertion of Endotracheal Airway into Trachea, Via Natural or Artificial Opening Endoscopic (ICD-10-PCS; 2021-03-26)
PROC: 02HV33Z Insertion of Infusion Device into Superior Vena Cava, Percutaneous Approach (ICD-10-PCS; 2021-03-26)
PROC: 3E04317 Introduction of Other Thrombolytic into Central Vein, Percutaneous Approach (ICD-10-PCS; 2021-03-26)
PROC: 3E043XZ Introduction of Vasopressor into Central Vein, Percutaneous Approach (ICD-10-PCS; 2021-03-26)
DX: U07.1 COVID-19 (principal); J12.82 Pneumonia due to coronavirus disease 2019; J96.21 Acute and chronic respiratory failure with hypoxia; Z94.4 Liver transplant status; Z51.5 Encounter for palliative care; E11.22 Type 2 diabetes mellitus with diabetic chronic kidney disease; I12.9 Hypertensive chronic kidney disease with stage 1 through stage 4 chronic kidney disease, or unspecified chronic kidney disease; K76.0 Fatty (change of) liver, not elsewhere classified; Z66 Do not resuscitate; N18.30 Chronic kidney disease, stage 3 unspecified; D72.819 Decreased white blood cell count, unspecified; J45.909 Unspecified asthma, uncomplicated; D72.810 Lymphocytopenia; T49.0X5A Adverse effect of local antifungal, anti-infective and anti-inflammatory drugs, initial encounter; Y95 Nosocomial condition; D69.6 Thrombocytopenia, unspecified; Z90.710 Acquired absence of both cervix and uterus; Z85.05 Personal history of malignant neoplasm of liver; Z98.890 Other specified postprocedural states; Z88.8 Allergy status to other drugs, medicaments and biological substances; Z79.899 Other long term (current) drug therapy; Z79.82 Long term (current) use of aspirin; Z78.1 Physical restraint status
CPT/HCPCS: 31500; 36415; 36556; 36600; 51702; 71045; 80048; 80053; 80069; 80076; 80180; 80197; 81001; 82248; 82803; 82947; 83605; 83615; 83735; 83880; 84100; 84132; 84145; 84484; 85014; 85018; 85025; 85049; 85379; 85610; 85730; 87070; 87106; 87205; 93005; 93010; 93308; 93321; 94002; 94003; 94640; 94660; 94668; 99285-25; A9270; C1751; C9113; J0692; J1644; J1815; J1940; J2060; J2405; J2704; J2765; J2997; J3010; J7030; J7050; J7060; J7507; J7517